=== PATIENT | male | born 1955 | race Caucasian/White ===

== ENCOUNTER 2020-05-15 07:15 | Outpatient (REF) | payer OTHER, SELFPAY ==
[2020-05-15 11:54] LABS: Cholesterol 130 mg/dL; HDL Cholesterol 33 mg/dL; LDL Cholesterol Calculated 58 mg/dl; Triglycerides 196 mg/dL
== END 2020-05-15 07:16 | disposition home or self-care (01) ==
LOC: HO.HMGCLDS 07:15
PROVIDERS: PCP Internal Medicine; Visit Provider Internal Medicine Cardiovascular Disease
DX: E78.00 Pure hypercholesterolemia, unspecified (principal)
CPT/HCPCS: 80061

== ENCOUNTER → 2020-07-08 13:22 | Outpatient (BNVA) | payer OTHER, SELFPAY | PROVIDERS: PCP Internal Medicine; Visit Provider Nurse Practitioner Family | DX: Z01.810 Encounter for preprocedural cardiovascular examination (principal); I25.10 Atherosclerotic heart disease of native coronary artery without angina pectoris; E78.5 Hyperlipidemia, unspecified; I10 Essential (primary) hypertension; Z98.890 Other specified postprocedural states; Z95.1 Presence of aortocoronary bypass graft | CPT/HCPCS: 93005 ==

== ENCOUNTER → 2021-01-12 13:22 | Outpatient (BNVA) | payer OTHER, SELFPAY | PROVIDERS: PCP Internal Medicine; Referring Provider Internal Medicine; Visit Provider Internal Medicine Cardiovascular Disease ==

== ENCOUNTER 2021-09-15 06:58 | Outpatient (REF) | payer OTHER, SELFPAY ==
[2021-09-15 11:27] LABS: MANUAL DIFF FLAG NO
[2021-09-15 11:35] LABS: Basophils Absolute Auto 0.1 X10*3/uL (0.0-0.2); Basophils Percent Auto 0.8 % (0-2); Eosinophils Absolute Auto 0.3 X10*3/uL (0.0-0.4); Eosinophils Percent Auto 4.1 % (0-4); Hematocrit 46.2 % (42.0-52.0); Hemoglobin 15.4 g/dl (14.0-18.0); Imm Gran Abs Auto 0.02 X10*3/uL (0.00-0.03); Imm Gran Pct Auto 0.3 % (0.0-0.4); Lymphocytes Absolute Auto 3.1 X10*3/uL (1.2-4.9); Lymphocytes Percent Auto 41.6 % (20-40); Mean Corpuscular HGB Conc 33.3 g/dl (31.0-36.0); Mean Corpuscular Volume 93.1 fL (80.0-98.0); Mean Platelet Volume 10.2 fL (9.4-12.4); Monocytes Absolute Auto 0.5 X10*3/uL (0.1-1.2); Monocytes Percent Auto 7.2 % (2-11); Neutrophils Absolute Auto 3.5 x10*3/uL (2.0-8.3); Platelet Count 232 X10*3/uL (160-400); Red Blood Count 4.96 X10*6/uL (4.60-5.80); Red Cell Distribution Width 13.5 % (11.0-16.0); White Blood Count 7.5 X10*3/uL (4.8-10.8)
[2021-09-15 12:01] LABS: Alanine Aminotransferase 31 U/L (0-40); Albumin Level 4.2 g/dL (3.5-5.0); Alkaline Phosphatase 42 U/L (39-117); Anion Gap 12 (12-20); Aspartate Amino Transferase 23 U/L (5-37); Bilirubin Total 0.5 mg/dL (0.0-1.0); Blood Urea Nitrogen 16 mg/dL (9-16); Calcium 9.6 mg/dL (8.4-10.2); Carbon Dioxide 27 mmol/L (22-29); Chloride 107 mmol/L (96-108); Cholesterol 154 mg/dL; Estimated Glomerular Filt Rate > 60; Glucose Fasting 114 mg/dL (60-99); HDL Cholesterol 32 mg/dL; LDL Cholesterol Calculated 83 mg/dl; Potassium 4.8 mmol/L (3.3-5.1); Sodium 141 mmol/L (135-145); Total Protein 6.8 g/dL (6.5-8.0); Triglycerides 195 mg/dL
== END 2021-09-15 06:59 | disposition home or self-care (01) ==
LOC: HO.HMGCLDS 06:58
PROVIDERS: Visit Provider Internal Medicine
DX: I10 Essential (primary) hypertension (principal); I25.10 Atherosclerotic heart disease of native coronary artery without angina pectoris; G25.81 Restless legs syndrome; E78.5 Hyperlipidemia, unspecified
CPT/HCPCS: 36415; 80053; 80061; 85025

== ENCOUNTER 2021-12-16 07:14 | Outpatient (REF) | payer OTHER, SELFPAY ==
[2021-12-16 11:36] LABS: Estimated Average Glucose 117 mg/dL; Hemoglobin A1C 148.9558 umol/L; Hemoglobin A1c % 5.7 %
[2021-12-16 12:14] LABS: Alanine Aminotransferase 17 U/L (0-40); Albumin Level 4.2 g/dL (3.5-5.0); Alkaline Phosphatase 45 U/L (39-117); Anion Gap 11 (12-20); Aspartate Amino Transferase 20 U/L (5-37); Bilirubin Total 0.6 mg/dL (0.0-1.0); Blood Urea Nitrogen 15 mg/dL (9-16); Calcium 9.2 mg/dL (8.4-10.2); Carbon Dioxide 28 mmol/L (22-29); Chloride 107 mmol/L (96-108); Cholesterol 131 mg/dL; Estimated Glomerular Filt Rate > 60; Glucose Fasting 101 mg/dL (60-99); HDL Cholesterol 35 mg/dL; LDL Cholesterol Calculated 65 mg/dl; Potassium 4.9 mmol/L (3.3-5.1); Sodium 141 mmol/L (135-145); Total Protein 6.5 g/dL (6.5-8.0); Triglycerides 157 mg/dL
== END 2021-12-16 07:15 | disposition home or self-care (01) ==
LOC: HO.HMGCLDS 07:14
PROVIDERS: PCP Internal Medicine; Visit Provider Internal Medicine
DX: Z00.01 Encounter for general adult medical examination with abnormal findings (principal); I25.10 Atherosclerotic heart disease of native coronary artery without angina pectoris; I10 Essential (primary) hypertension; R73.01 Impaired fasting glucose; E66.01 Morbid (severe) obesity due to excess calories; G25.81 Restless legs syndrome
CPT/HCPCS: 36415; 80053; 80061; 83036

== ENCOUNTER → 2022-01-18 10:23 | Outpatient (BNVA) | payer OTHER, SELFPAY | PROVIDERS: PCP Internal Medicine; Referring Provider Internal Medicine; Visit Provider Internal Medicine Cardiovascular Disease | DX: I25.10 Atherosclerotic heart disease of native coronary artery without angina pectoris (principal); I10 Essential (primary) hypertension | CPT/HCPCS: 93005 ==

== ENCOUNTER 2022-08-24 07:01 | Outpatient (REF) | payer OTHER, SELFPAY ==
[2022-08-24 11:44] LABS: MANUAL DIFF FLAG NO
[2022-08-24 11:55] LABS: Basophils Absolute Auto 0.1 X10*3/uL (0.0-0.2); Basophils Percent Auto 0.8 % (0-2); Eosinophils Absolute Auto 0.3 X10*3/uL (0.0-0.4); Hematocrit 48.4 % (42.0-52.0); Imm Gran Abs Auto 0.02 X10*3/uL (0.00-0.03); Imm Gran Pct Auto 0.3 % (0.0-0.4); Lymphocytes Absolute Auto 3.1 X10*3/uL (1.2-4.9); Mean Corpuscular HGB Conc 33.1 g/dl (31.0-36.0); Mean Corpuscular Hemoglobin 30.8 pg (27.0-33.0); Mean Corpuscular Volume 93.1 fL (80.0-98.0); Mean Platelet Volume 10.1 fL (9.4-12.4); Monocytes Absolute Auto 0.5 X10*3/uL (0.1-1.2); Monocytes Percent Auto 6.7 % (2-11); Neutrophils Absolute Auto 3.8 x10*3/uL (2.0-8.3); Neutrophils Percent Auto 48.2 % (45-73); Platelet Count 234 X10*3/uL (160-400); Red Cell Distribution Width 13.2 % (11.0-16.0); White Blood Count 7.8 X10*3/uL (4.8-10.8)
[2022-08-24 12:15] LABS: Alanine Aminotransferase 24 U/L (0-40); Albumin Level 4.3 g/dL (3.5-5.0); Alkaline Phosphatase 44 U/L (39-117); Anion Gap 12 (12-20); Aspartate Amino Transferase 21 U/L (5-37); Bilirubin Direct < 0.2 mg/dL (0.0-0.5); Bilirubin Total 0.5 mg/dL (0.0-1.0); Blood Urea Nitrogen 16 mg/dL (9-16); Calcium 9.4 mg/dL (8.4-10.2); Carbon Dioxide 29 mmol/L (22-29); Chloride 106 mmol/L (96-108); Estimated Glomerular Filt Rate > 60; Glucose Fasting 106 mg/dL (60-99); Potassium 4.9 mmol/L (3.3-5.1); Sodium 142 mmol/L (135-145); Total Protein 6.7 g/dL (6.5-8.0)
== END 2022-08-24 07:02 | disposition home or self-care (01) ==
LOC: HO.HMGCLDS 07:01
PROVIDERS: PCP Internal Medicine; Visit Provider Internal Medicine
DX: E66.09 Other obesity due to excess calories (principal); G25.81 Restless legs syndrome; I10 Essential (primary) hypertension; I25.10 Atherosclerotic heart disease of native coronary artery without angina pectoris; R73.01 Impaired fasting glucose; E78.5 Hyperlipidemia, unspecified
CPT/HCPCS: 36415; 80053; 80076; 82248; 85025

== ENCOUNTER 2022-12-17 09:33 | Outpatient (AMB) | payer OTHER, SELFPAY ==
--- NOTE | 2022-12-17 09:34 | A.OFFPC_ITS ---
Vital Signs 12/17/22 09:36 Weight 198 lb 8 oz BP 160/82 H Blood Pressure Location Rt brachial Position Sitting Pulse 68 Pulse Source Pulse Oximeter Pulse Oximetry (%) 96 Oxygen Delivery Method Room Air Intake Visit Reasons: PE Allergies No Known Allergies Allergy (Verified 12/17/22 09:38) Medication List - Last Reconciled 12/17/22 by Yoli Mathew MD aspirin (Ecotrin Low Strength) 81 mg PO DAILY atorvastatin 80 mg PO DAILY ezetimibe 10 mg PO DAILY metoprolol succinate ER 25 mg PO DAILY pramipexole 0.75 mg PO BEDTIME 90 days Tobacco use date assessed: 12/17/22 Fall risk assessment: No Falls in past year Last assessed Fall Risk: 12/17/22 Dental Screening Dental Screen Date: 12/17/22 Did you have a dental visit in the last 12 months?: Yes Did you have a dental problem in the last 6 months where you did not have access to dental care?: No Was dental information given to patient?: No HPI PE HPI Details Physical exam appointment Blood pressure is elevated, patient says that he get anxious when he comes to doctor's office at home it is running around 120 in below systolic All his medications are through cardiology office except pramipexole which I have sent for him. He offers no complaints today Do not want to do colonoscopy but agree to do Cologuard order placed Follow-up 1 year for physical exam Patient have appointment coming up with Cardiology next month [facility] Medical History CAD (coronary artery disease) HLD (hyperlipidemia) Hypertension, essential Restless leg syndrome Surgical History History of colonoscopy History of total left knee replacement (TKR) Hx of cardiac cath (~09/2019) S/P triple vessel bypass (~09/2019) Family History Father Myocardial infarction Social History Housing: House Alcohol intake: current Alcohol intake frequency: a few times a month Patient Tobacco Use Status: Former Tobacco user Tobacco use type: Cigarette Years Smoked: 2 e-Cigarette/Vaping Use: Never Used Second Hand Smoke Exposure: Yes service: No Current occupational status: retired Cognitive needs: No Hearing needs: No Vision needs: No Questionnaire Thrive Questionnaire Date Thrive assessed: 09/15/21 AUDIT C Alcohol Use Questionnaire (AUDIT-C) 1. How often do you have a drink containing alcohol?: 2-4 times a month 2. How many drinks containing alcohol do you have on a typical day when you are drinking?: 1 or 2 3. How often do you have six or more drinks on one occasion?: Never Total Score: 2 Score Reviewed/Action Taken: Yes KATI-7 AMB Questionnaire KATI-7 Date KATI - 7 assessed: 09/15/21 Source: Developed by Drs. Woody Feliciano, Fabi Barney, Pernell Berkowitz and colleagues, with an educational dany from [employer]. Review of Systems Const Denies chills, Denies fever(s) and Denies headache(s) Eyes Denies blurry vision ENT Denies headache(s), Denies nasal discharge, Denies nasal obstruction, Denies odynophagia and Denies sinus pain Card Denies chest pain at rest and Denies chest pain with activity Resp Denies cough and Denies hemoptysis GI Denies diarrhea, Denies odynophagia, Denies vomiting and Denies hematemesis Reports as per HPI Musc Denies abnormal gait Skin/Breast Reports as per HPI Neuro Denies Neuro-related abnormal movements, Denies Abnormal speech present, Denies abnormal gait, Denies headache(s) and Denies Sensory deficit (Neuro) Psych Denies mood swings and Denies paranoia Endo Reports as per HPI Beltran/Lymph Reports as per HPI Aller/Immun Reports as per HPI Physical exam (Primary Care) Vital Signs: Last Vital Signs Pulse 68 12/17/22 09:36 BP 160/82 H 12/17/22 09:36 Pulse Ox 96 12/17/22 09:36 Oxygen Delivery Method Room Air 12/17/22 09:36 Tobacco/Smoking Status: Tobacco use Status Tobacco use date assessed 12/17/22 12/17/22 09:39 Patient Tobacco Use Status Former Tobacco user 12/17/22 09:39 Tobacco use type Cigarette 12/17/22 09:39 e-Cigarette/Vaping Use Never Used 12/17/22 09:39 Thrive Assessment: Date of Thrive Assessment Date Thrive assessed 09/15/21 12/17/22 09:39 Const General: cooperative, comfortable and no acute distress Orientation/consciousness: patient oriented x3 HENMT Head: Yes normocephalic and Yes atraumatic Eyes General: appearance normal, both eyes and all related structures Pupils: Equal, round and reactive pupils present EOM: EOMs intact bilaterally Neck Neck: Yes supple and No lymphadenopathy Thyroid: Thyroid normal Lymphatic: no lymphadenopathy noted Resp Effort & Inspection: normal respiratory effort and able to speak in complete sentences Auscultation: clear to auscultation bilaterally Cardio Heart sounds: S1 normal heart sound present and S2 normal heart sound present GI Palpation (GI): Soft to palpation and nontender Auscultation: normal bowel sounds General: Yes no CVA tenderness Back/Spine/Pelvis Back: no CVA tenderness Skin General skin exam: elasticity normal and turgor normal Neuro General: patient oriented x3 and gait normal Cranial nerves: Yes Equal, round and reactive pupils present Speech: No Abnormal speech present Sensory Exam: No Sensory deficit (Neuro) Coordination: tandem gait normal and Romberg test negative Extrem General: Yes normal exam except as noted and No edema Assessment and Plan Assessment & Plan (1) Encounter for general adult medical examination with abnormal findings: Code(s): Z00.01 - Encounter for general adult medical examination with abnormal findings (2) Restless leg syndrome: Code(s): G2.81 - Restless legs syndrome Plan Physical exam appointment Blood pressure is elevated, patient says that he get anxious when he comes to doctor's office at home it is running around 120 in below systolic All his medications are through cardiology office except pramipexole which I have sent for him. He offers no complaints today Do not want to do colonoscopy but agree to do Cologuard order placed Follow-up 1 year for physical exam Patient have appointment coming up with Cardiology next month Orders: Referrals Cologuard Test Z12.11 - Encounter for screening for malignant neoplasm of colon, Z12.12 - Encounter for screening for malignant neoplasm of rectum Medications: Refilled pramipexole 0.75 mg PO BEDTIME 90 tabs 3RF 90 days .81 - Restless legs syndrome Coding Level of Care Code Est Pt Prev Care >65y(12699) Diagnoses Encounter for general adult medical examination with abnormal findings Z. Restless leg syndrome G2
[2022-12-17 09:36] VITALS: BP 160/82; PULSE 68; O2SAT 96
== END 2022-12-17 11:32 | disposition home or self-care (01) ==
PROVIDERS: Visit Provider Internal Medicine
DX: Z00.01 Encounter for general adult medical examination with abnormal findings (principal); G25.81 Restless legs syndrome
CPT/HCPCS: 99397

== ENCOUNTER → 2023-01-04 10:07 | Outpatient (REF) | payer OTHER, SELFPAY ==
--- NOTE | 2023-01-04 10:09 | CA_ITS ---
Transthoracic Echocardiogram Patient (Last, First, Middle): Woody Davis, Gender: Male Date of : 1955 Age: 67 Procedure Date: 01/04/2023 Procedure Type: Transthoracic Echocardiogram Location: OP Height: 170.18 cm Weight: 87.54 kg BSA: 1.99 m2 Heart Rate: bpm BP: 120 / 80 mmHg Ecological Risk Assessor: FROY Referring MD: Shorty Avila MD Symptoms: I25.10 - Atherosclerotic heart disease of [place] coronary artery without... Study Quality: Adequate ECG Rhythm: Sinus Conclusions: - The left ventricular systolic function is hyperdynamic. The calculated ejection fraction is 71% by biplane method. - LV peak systolic GLS -21.4%. - There is mild calcification of the aortic valve. - No obvious valvular pathology seen on this study. Findings Left Ventricle Normal left ventricular cavity size. There is mildly increased left ventricular wall thickness. The left ventricular systolic function is hyperdynamic. The calculated ejection fraction is 71% by biplane method. There is no evidence of regional wall motion abnormalities. Diastolic function is normal for age. LV peak systolic GLS -21.4%. Right Ventricle Normal right ventricular cavity size. There is mildly decreased right ventricular systolic function. Atria Both atria are normal in size. Aortic Valve There is mild calcification of the aortic valve. There is no aortic valve stenosis. There is no aortic valve regurgitation. Mitral Valve The mitral valve appears normal. There is trace mitral valve regurgitation. There is no mitral valve stenosis. Pulmonic Valve The pulmonic valve is likely normal. Tricuspid Valve There is mild tricuspid valve regurgitation. There is no evidence of pulmonary hypertension. Great Vessels The asc aorta is normal in size. Venous The inferior vena cava is normal in size and collapses greater than 50% with inspiration. Pericardium/Pleural There is no evidence of pericardial effusion. Prior Study Comparison Changes noted compared to prior study dated: 11/05/2019. LVEF higher than previously stated. Recommendations, Care & Conclusions No obvious valvular pathology seen on this study. Measurements 2D Linear Measurements IVSd: 1.15 0.6-0.9/0.6-1.0 cm LVIDd: 4.20 3.9-5.3/4.2-5.9 cm LVIDd Index: 2.11 2.4-3.2/2.2-3.1 cm/m2 LVIDs: 2.79 2.0-3.6 cm LVPWd: 1.12 0.7-1.1 cm LA Diam: 3.50 2.7-3.8/3.0-4.0 cm LAIDs Index: 1.76 1.5-2.3 cm/m2 LV Mass: 204.62 67-162/88-224 g LV Mass Index: 102.83 43-95/49-115 g/m2 LVOT Diam: 2.30 3.0+(-)1.3 cm 2D Systolic Function EF 4C: 77.90 >55% EF 2C: 61.50 >55% EF BiP: 70.70 >55% Mitral Valve MV Pk E: 1.01 MV PK A: 1.02 MV Decel Time: 246.00 E/A: 1.00 E'Lateral: 11.70 E'Medial: 6.42 E/E' Med: 15.70 E/E' Lat: 8.60 PHT: 72.00 MVA PHT: 3.06 Decel [place]: 4.11 Aortic Valve AoV Pk [place]: 1.75 AoV Mn [place]: 1.11 AoV VTI: 0.40 AoV Pk Grad: 12.00 Aov Mn Grad: 6.00 FARHEEN Cont.VTI: 3.18 LVOT LVOT Pk [place]: 1.33 LVOT Mn [place]: 0.90 LVOT VTI: 0.31 LVOT Pk Grad: 7.00 LVOT Mn Grad: 4.00 LVOT Diam: 2.30 LVOT Area: 4.15 Diastolic Function MV Pk E: 1.01 MV Pk A: 1.02 E/A: 1.00 E'Medial: 6.42 E/E' Med: 15.70 E' Laterial: 11.70 E/E' Lat: 8.60 Right Ventricle TAPSE (mm): 18.20 TVS' [place]: 8.70 Tricuspid Valve TR Pk [place]: 2.67 TR Pk Grad: 29.00 RA Press: 3.00 RVSP: 32.00 Great Vessels Aorta Sinus of Valsalva: 3.85 2.0-3.[address] [place]: 3.04 1.7-3.4 cm Ao Asc: 3.80 2.1-3.4 cm Updated in Other Vendor System with Status of Final Willian Palma MD electronically signed on 01/04/2023 11:15:57 AM with status of Final
== END ==
LOC: HO.CARD 10:07
PROVIDERS: PCP Internal Medicine; Visit Provider Internal Medicine Cardiovascular Disease
DX: I25.10 Atherosclerotic heart disease of native coronary artery without angina pectoris (principal)
CPT/HCPCS: 93306; 93356

== ENCOUNTER → 2023-01-04 10:09 | Outpatient (BNV) | payer OTHER, SELFPAY | PROVIDERS: PCP Internal Medicine; Visit Provider Internal Medicine | DX: I25.10 Atherosclerotic heart disease of native coronary artery without angina pectoris (principal); I36.1 Nonrheumatic tricuspid (valve) insufficiency | CPT/HCPCS: 93306 ==

== ENCOUNTER 2023-07-12 13:29 | Outpatient (AMB) | payer OTHER, SELFPAY ==
[2023-07-12 13:31] VITALS: BP 171/88; PULSE 62; BMI 31.4
--- NOTE | 2023-07-12 13:31 | MHC.OFFVIS ---
Intake Vital Signs 07/12/23 13:31 Height 5 ft 7 in Weight 200 lb 9.93 oz BMI 31.4 BP 171/88 H Blood Pressure Location Lt brachial Position Sitting Pulse 62 Intake Visit Reasons: Other fecal abnormalities Intake Note: Patient presents to in office visit today as a new patient for positive cologuard. CC: Patient denies having any GI symptoms today. Patient states his last colonoscopy was about 9-10 years ago . Tourist Adviser Required: No Accompanied by: Self / Same As Patient Allergies No Known Allergies Allergy (Verified 07/12/23 13:36) HPI Other fecal abnormalities HPI Details 68 year old? male with past medical history of CAD, triple bypass in 2019, hypertension, hyperlipidemia is here today for pre colonoscopy screening.? History of three-vessel bypass in September of 2019. Patient has seen Dr. Avila since. Appointment in January. Will ask for risk stratification. Normal colonoscopy in 2006. In April patient had positive Cologuard. Patient denies melena, hematochezia, unintentional weight loss or ribbon like stools.? Patient denies any gastrointestinal symptoms in the past or at present.? Denies any personal or family history of gastrointestinal disease, colon polyps, or cancer.? Denies history of difficulty with sedation or anesthesia in the past.? Negative for history of sleep apnea.? Denies any history of cardiac, renal, pulmonary, or hepatic disease.?? No history of infectious? diseases like hepatitis A, B, C, HIV or tuberculosis.? Patient is on low-dose aspirin [facility] Medical History CAD (coronary artery disease) Restless leg syndrome Hypertension, essential HLD (hyperlipidemia) Surgical History Hx of cardiac cath (~09/2019) S/P triple vessel bypass (~09/2019) History of colonoscopy History of total left knee replacement (TKR) Family History Father Myocardial infarction Social History Housing: House Alcohol intake: current Alcohol intake frequency: a few times a month Patient Tobacco Use Status: Former Tobacco user Tobacco use type: Cigarette Years Smoked: 2 e-Cigarette/Vaping Use: Never Used Second Hand Smoke Exposure: Yes service: No Current occupational status: retired Cognitive needs: No Hearing needs: No Vision needs: No Review of Systems Const Denies weight gain and Denies weight loss ENT Reports no additional complaints, Denies dysphagia and Denies odynophagia Card Reports no additional complaints Resp Reports no additional complaints GI Denies abdominal pain, Denies belching, Denies melena, Denies bloating, Denies change in bowel habits, Denies dysphagia, Denies excessive flatus, Denies dyspepsia, Denies heartburn, Denies diarrhea, Denies loose stools, Denies nausea, Denies odynophagia and Denies vomiting Reports no additional complaints Musc Reports no additional complaints Neuro Reports no additional complaints Psych Reports no additional complaints Endo Reports no additional complaints Physical Exam Vital Signs: Last Vital Signs Pulse 62 07/12/23 13:31 BP 171/88 H 07/12/23 13:31 BMI result Body Mass Index 31.4 Const General: healthy appearing, no acute distress and well developed Nutritional Appearance: well nourished Orientation/consciousness: patient oriented x3 Resp Effort & Inspection: normal respiratory effort, able to speak in complete sentences, no tracheal deviation and symmetric chest movement Auscultation: clear to auscultation bilaterally Cardio Rate: regular rate GI Inspection: Yes normal to inspection and No distended Palpation (GI): Soft to palpation, not firm, nontender and No hepatosplenomegaly present Auscultation: normal bowel sounds General: Yes no CVA tenderness Back/Spine/Pelvis Back: no CVA tenderness Skin General skin exam: elasticity normal, turgor normal and dry skin Neuro General: patient oriented x3 Psych Appearance: grossly normal Mental Status: mental status grossly normal Assessment & Plan Assessment & Plan (1) Positive colorectal cancer screening using Cologuard test: Code(s): R19.5 - Other fecal abnormalities Plan Patient denies any GI, cardiac or respiratory symptoms.? Denies any issues with anesthesia in the past.? As mentioned above patient had positive Cologuard in April. History of normal colonoscopy in 2006. Patient had triple bypass in 2019, sees cardiology annually. No cardiac or respiratory symptoms. Patient has appointment with dry mill operator in January. Will ask for risk stratification. Patient is on low-dose aspirin Denies any history of sleep apnea.? No history infectious diseases in the past or present.? ? No family or personal history of colon cancer or polyps.? Patient denies melena, hematochezia, unintentional weight loss or ribbon like stools.? Discussed at length the pre-procedure,? prep, diet & medications as well as what to expect prior, during and after the procedure.?? Stressed the importance of good bowel prep. ?Recommended the use of Vaseline or Calmoseptine OTC & baby wipes with bowel movements to promote comfort.? ?Patient verbalizes understanding and agrees to plan of care.? He was given the opportunity to ask questions and all questions answered.? We will see him after the procedure.? Coding Level of Care Code New Pt Level 3 (68577) Diagnoses Positive colorectal cancer screening using Cologuard test R19.5 Time Spent (min) 40 Comment 30 minutes spent with patient and additional 10 minutes spent reviewing his records
== END 2023-07-12 14:52 | disposition home or self-care (01) ==
PROVIDERS: PCP Internal Medicine; Visit Provider Nurse Practitioner Family
DX: R19.5 Other fecal abnormalities (principal)
CPT/HCPCS: 99203

== ENCOUNTER → 2023-07-12 13:29 | Outpatient (BNVA) | payer OTHER, SELFPAY | PROVIDERS: PCP Internal Medicine; Visit Provider Nurse Practitioner Family ==

== ENCOUNTER 2023-11-21 14:39 | Outpatient (AMB) | payer OTHER, SELFPAY ==
[2023-11-21 14:51] VITALS: BP 128/84; PULSE 64
--- NOTE | 2023-11-21 14:51 | MHC.OFFVIS ---
Vital Signs 11/21/23 14:51 Height 5 ft 7 in Weight 191 lb 12.835 oz BMI 30.0 BP 128/84 Blood Pressure Location Lt brachial Position Sitting Pulse 64 Intake Visit Reasons: overdue 1 yr fu/ clearance needed for colonoscopy Intake Note: Overdue follow-up and pre-op clearance colonoscopy with ekg feeling good Allergies No Known Allergies Allergy (Verified 07/12/23 13:36) Medication List - Last Reconciled 11/21/23 by Shorty Avila MD aspirin (Ecotrin Low Strength) 81 mg PO DAILY atorvastatin 80 mg PO DAILY ezetimibe 10 mg PO DAILY metoprolol succinate ER 25 mg PO DAILY pramipexole 0.75 mg PO BEDTIME 90 days HPI Comments Details: Woody Comes for follow-up after a long gap. Occasionally feels short of breath. Since May he said he was having issues with increased shortness of breath with cough productive of phlegm after exposure to his friend who had RSV. He has never been diagnose officially with COPD. He denies any chest pain syndrome. Denies any orthopnea, PND, leg edema. Denies any claudication symptoms. Denies any palpitations, lightheadedness, syncope. Takes all his medications. No recent lipid panel. [facility] Medical History CAD (coronary artery disease) Restless leg syndrome Hypertension, essential HLD (hyperlipidemia) Surgical History Hx of cardiac cath (~09/2019) S/P triple vessel bypass (~09/2019) History of colonoscopy History of total left knee replacement (TKR) Family History Father Myocardial infarction Social History Housing: House Alcohol intake: current Alcohol intake frequency: a few times a month Patient Tobacco Use Status: Former Tobacco user Tobacco use type: Cigarette Years Smoked: 2 e-Cigarette/Vaping Use: Never Used Second Hand Smoke Exposure: Yes service: No Current occupational status: retired Cognitive needs: No Hearing needs: No Vision needs: No Review of Systems Const Denies chills, Denies fatigue, Denies fever(s), Denies frequent falls, Denies weakness, Denies weight gain and Denies weight loss ENT Denies dizziness Card Denies chest pain, Denies leg edema, Denies lightheadedness, Denies palpitations, Denies dyspnea, Denies dyspnea on exertion, Denies orthopnea and Denies other (loss of consciousness) Resp Denies cough, Denies dyspnea and Denies dyspnea on exertion GI Denies hematochezia and Denies change in stool character Musc Denies abnormal gait, Denies muscle weakness, Denies numbness, Denies radiating pain into limb and Denies tingling Neuro Denies abnormal gait, Denies dizziness, Denies frequent falls, Denies numbness, Denies tingling and Denies weakness Endo Denies fatigue and Denies palpitations Physical Exam Vital Signs: Last Vital Signs Pulse 64 11/21/23 14:51 BP 128/84 11/21/23 14:51 BMI result Body Mass Index 30.0 Const General: cooperative, healthy appearing, comfortable and no acute distress Orientation/consciousness: patient oriented x3 Neck Neck: Yes normal visual inspection and Yes no JVD Carotids: normal carotid upstroke Resp Effort & Inspection: normal respiratory effort Auscultation: clear to auscultation bilaterally, no crackles, no rales, no rhonchi, no wheezes and diminished lung sounds Cardio Jugular venous distension: no JVD Rate: regular rate Rhythm: regular rhythm Heart sounds: S1 normal heart sound present, S2 normal heart sound present, no gallops, no murmurs and no rubs Peripheral pulses: Peripheral pulses 2+ throughout GI Inspection: Yes normal to inspection Neuro General: patient oriented x3 Extrem General: Yes normal to inspection, No no pedal edema and No calf tenderness Office Procedures EKG Details: EKG shows normal sinus rhythm with septal QS pattern otherwise normal EKG [id number], Complete Assessment & Plan Assessment & Plan (1) CAD (coronary artery disease): Code(s): I25.10 - Atherosclerotic heart disease of [place] coronary artery without angina pectoris Category: Medical Plan: Coronary artery disease with coronary artery bypass grafting for severe coronary disease with no concerning symptoms of angina. Importance of good medical therapy was discussed. Continue low-dose aspirin therapy for life. Continue current high-intensity statin therapy along with ezetimibe to target goal LDL less than 70 mg/dL. Advised lipid panel near future. Continue aggressive blood pressure control which appears to be well optimized encouraged to continue to participate in physical activity as tolerated. Will follow-up with myocardial perfusion imaging next year along with an echocardiogram next year as well. Suggest abdominal ultrasound given his prior history of smoking for AAA screening. Complaining of increasing exertional shortness of breath with phlegm most likely suggestive of COPD baseline physical exam. Consider PFT and referral to Pulmonary. (2) Hypertension, essential: Code(s): I10 - Essential (primary) hypertension Category: Medical Plan: Hypertension which is currently well optimized advised to monitor blood pressure at home maintain a log. Goal blood pressure less than 130/84. Low-salt diet was discussed encouraged to participate in physical activity as tolerated and weight loss program. Will follow up in the clinic in 1 year's time, sooner p.r.n.. Thank you for allowing me to partake in his care Orders: Orders PFT pulmonary function test Today R06.02 - Shortness of breath CA stress test 1 Year I25.10 - Atherosclerotic heart disease of [place] coronary artery without angina pectoris NM cardiolite stress test 1 Year I25.10 - Atherosclerotic heart disease of [place] coronary artery without angina pectoris CA echo transthoracic complete Today I25.10 - Atherosclerotic heart disease of [place] coronary artery without angina pectoris Lipid Panel Today I25.10 - Atherosclerotic heart disease of [place] coronary artery without angina pectoris US abdominal aortic aneurysm Today I25.10 - Atherosclerotic heart disease of [place] coronary artery without angina pectoris Coding Level of Care Code Est Pt Level 4 (27892) Diagnoses CAD (coronary artery disease) I25.10 Hypertension, essential I10 CPT Codes EKG - CPT: 03954-[id number], Complete ([id number])
== END 2023-11-21 15:17 | disposition home or self-care (01) ==
PROVIDERS: PCP Internal Medicine; Visit Provider Internal Medicine Cardiovascular Disease
DX: I25.10 Atherosclerotic heart disease of native coronary artery without angina pectoris (principal); I10 Essential (primary) hypertension
CPT/HCPCS: 93010; 99214

== ENCOUNTER → 2023-11-21 14:39 | Outpatient (BNVA) | payer OTHER, SELFPAY | PROVIDERS: PCP Internal Medicine; Visit Provider Internal Medicine Cardiovascular Disease | DX: I25.10 Atherosclerotic heart disease of native coronary artery without angina pectoris (principal); I10 Essential (primary) hypertension; Z79.82 Long term (current) use of aspirin; Z79.899 Other long term (current) drug therapy | CPT/HCPCS: 93005 ==

== ENCOUNTER 2023-12-06 09:53 | Outpatient (REF) | payer OTHER, SELFPAY ==
--- NOTE | ~2023-12-06 | US_ITS ---
EXAMINATION: US RETROPERITONEAL LIMITED (AORTA) CLINICAL INFORMATION: Atherosclerotic heart disease of [place] coronary artery without angina pectoris. COMPARISON: None available. TECHNIQUE: Moran-scale, color Doppler and spectral Doppler evaluation of the abdominal aorta. FINDINGS: Atherosclerosis in the abdominal aorta. The measurements of the aorta in maximum AP and transverse dimensions respectively are as follows: Proximal: 3.0 x 2.9 cm. Mid: 2.7 x 2.6 cm. Distal: 3.0 x 3.4 cm. PSV: 43.3 cm/s. The measurements of the common iliac arteries in maximum AP and TRV dimensions are as follows: Right Common Iliac Artery: 1.5 x 1.5 cm. Left Common Iliac Artery: 1.6 x 1.5 cm. US/US abdominal aortic aneurysm IMPRESSION: Infrarenal abdominal aortic aneurysm measuring up to 3.4 cm. Best Practice Recommendation: Based on published guidelines in J Am Zee Radiol 2013; 10(10):789-794 and J Vasc Surg. 2018; 67:2-77, the recommendation for an abdominal aortic aneurysm with diameter 3.0-3.4 cm is follow-up every 3 years.
== END 2023-12-06 09:54 | disposition home or self-care (01) ==
LOC: HO.US 09:53
PROVIDERS: PCP Internal Medicine; Visit Provider Internal Medicine Cardiovascular Disease
DX: I25.10 Atherosclerotic heart disease of native coronary artery without angina pectoris (principal)
CPT/HCPCS: 76706

== ENCOUNTER 2023-12-07 06:03 | Outpatient (REF) | payer OTHER, SELFPAY ==
[2023-12-07 11:00] LABS: Cholesterol 135 mg/dL (<200); HDL Cholesterol 36 mg/dL (>40); LDL Cholesterol Calculated 64 mg/dL (<100); Triglycerides 176 mg/dL (<150)
== END 2023-12-07 06:04 | disposition home or self-care (01) ==
LOC: HO.HMGCLDS 06:03
PROVIDERS: PCP Internal Medicine; Visit Provider Internal Medicine Cardiovascular Disease
DX: I25.10 Atherosclerotic heart disease of native coronary artery without angina pectoris (principal)
CPT/HCPCS: 36415; 80061

== ENCOUNTER 2023-12-21 09:05 | Outpatient (AMB) | payer OTHER, SELFPAY ==
[2023-12-21 09:06] VITALS: BP 140/80; PULSE 74; O2SAT 97
--- NOTE | 2023-12-21 09:06 | A.OFFPC_ITS ---
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 Accompanied by: Self / Same As Patient Allergies No Known Allergies Allergy (Verified 12/21/23 09:06) Medication List - Last Reconciled 12/21/23 by Yoli Mathew MD aspirin (Ecotrin Low Strength) 81 mg PO DAILY atorvastatin 80 mg PO DAILY ezetimibe 10 mg PO DAILY metoprolol succinate ER 25 mg PO DAILY pramipexole 0.75 mg PO BEDTIME 90 days Tobacco use date assessed: 12/21/23 Fall risk assessment: No Falls in past year Last assessed Fall Risk: 12/21/23 Dental Screening Dental Screen Date: 12/21/23 Did you have a dental visit in the last 12 months?: Yes Did you have a dental problem in the last 6 months where you did not have access to dental care?: No Was dental information given to patient?: Patient has dentist HPI Annual PE HPI Details 68 year old? male with past medical hist ory of CAD, triple bypass in 2019, hypertension, hyperlipidemia Positive Cologuard test in April of last year, has seen Gastroenterology July of this year and is due to have colonoscopy in April Came in for physical exam Patient is established with Cardiology [facility] Pulmonary function test was ordered by Dr. Avila as patient continued to complain of mild shortness a breath He just had does done yesterday report is not available Offer no new complaints Only medication from PCP office is pramipexole for restless legs syndrome. History of impaired fasting sugar, I see that he had cholesterol test done recently this month I have placed order for rest of the labs patient may do them as per his convenience [facility] Medical History CAD (coronary artery disease) Restless leg syndrome Hypertension, essential HLD (hyperlipidemia) Surgical History Hx of cardiac cath (~09/2019) S/P triple vessel bypass (~09/2019) History of colonoscopy History of total left knee replacement (TKR) Family History Father Myocardial infarction Social History Housing: House Alcohol intake: current Alcohol intake frequency: a few times a month Patient Tobacco Use Status: Former Tobacco user Tobacco use type: Cigarette Years Smoked: 2 e-Cigarette/Vaping Use: Never Used Second Hand Smoke Exposure: Yes service: No Current occupational status: retired Cognitive needs: No Hearing needs: No Vision needs: No Questionnaire PHQ-9 Over the last 2 weeks, how often have you been bothered by any of the following problems? 1. Little interest or pleasure in doing things: not at all 2. Feeling down, depressed, or hopeless: not at all 3. Trouble falling or staying asleep, or sleeping too much: not at all 4. Feeling tired or having little energy: not at all 5. Poor appetite or overeating: not at all 6. Feeling bad about yourself - or that you are a failure or have let yourself or your family down: not at all 7. Trouble concentrating on things, such as reading the newspaper or watching television: not at all 8. Moving or speaking so slowly that other people could have noticed. Or the opposite - being so fidgety or restless that you have been moving around a lot more than usual: not at all 9. Thoughts that you would be better off or of hurting yourself in some way: not at all Total score: 0 Depression Screening Interpretation: Negative Depression Screening Done: Yes 34693 - PHQ-9 Billing: Yes Source: Developed by Drs. Woody Feliciano, Fabi Barney, Pernell Berkowitz and colleagues, with an educational dany from [employer]. Thrive Questionnaire Date Thrive assessed: 12/21/23 I am a: Patient What is your living situation today?: I have a steady place to live Within the past 12 months, did the food you bought not last and you didn't have the money to get more?: Never true Within the past 12 months, did you worry whether your food would run out before you got money to buy more?: Never true Do you have trouble paying for medicines?: No Do you have trouble getting transportation to medical appointments?: No Do you have trouble paying your heating and electricity bill?: No Do you have trouble taking care of your child, family member or friend?: No Do you have trouble with day-to-day activities such as bathing, preparing meals, shopping, managing finances, etc.?: No Are you currently unemployed and looking for a job?: No Are you interested in more education?: No Please select the resources that you would like help with: Housing/Retirement Currently or been in a relationship where the following occur: No concerns reported THRIVE Score: 0 AUDIT C Alcohol Use Questionnaire (AUDIT-C) 1. How often do you have a drink containing alcohol?: 2-4 times a month 2. How many drinks containing alcohol do you have on a typical day when you are drinking?: 1 or 2 3. How often do you have six or more drinks on one occasion?: Never Total Score: 2 Score Reviewed/Action Taken: Yes KATI-7 AMB Questionnaire KATI-7 Date KATI - 7 assessed: 12/21/23 Feeling nervous, anxious, or on edge: 0 = Not at all Not being able to stop or control worryin = Not at all Worrying too much about different things: 0 = Not at all Trouble relaxin = Not at all Being so restless that it is hard to sit still: 0 = Not at all Becoming easily annoyed or irritable: 0 = Not at all Feeling afraid as if something awful might happen: 0 = Not at all Total KATI-7 score (0-4 normal; 5-9 mild; 10-14 moderate; 15-21 severe): 0 Source: Developed by Drs. Woody Feliciano, Fabi Barney, Pernell Berkowitz and colleagues, with an educational dany from [employer]. KATI-7 Assessment Billing KATI-7 Assessment Tool: KATI-7 Assessment 29215 Review of Systems Const Denies chills, Denies fever(s) and Denies headache(s) Eyes Denies blurry vision ENT Denies headache(s), Denies nasal discharge, Denies nasal obstruction, Denies odynophagia and Denies sinus pain Card Denies chest pain at rest and Denies chest pain with activity Resp Denies cough and Denies hemoptysis GI Denies diarrhea, Denies odynophagia, Denies vomiting and Denies hematemesis Reports as per HPI Musc Denies abnormal gait Skin/Breast Reports as per HPI Neuro Denies Neuro-related abnormal movements, Denies Abnormal speech present, Denies abnormal gait, Denies headache(s) and Denies Sensory deficit (Neuro) Psych Denies mood swings and Denies paranoia Endo Reports as per HPI Bel[place]an/Lymph Reports as per HPI Aller/Immun Reports as per HPI Physical exam (Primary Care) Vital Signs: Last Vital Signs Pulse 74 12/21/23 09:06 BP 140/80 H 12/21/23 09:06 Pulse Ox 97 12/21/23 09:06 Oxygen Delivery Method Room Air 12/21/23 09:06 Tobacco/Smoking Status: Tobacco use Status Tobacco use date assessed 12/21/23 12/21/23 09:07 Patient Tobacco Use Status Former Tobacco user 12/21/23 09:07 Tobacco use type Cigarette 12/21/23 09:07 e-Cigarette/Vaping Use Never Used 12/21/23 09:07 PHQ-9: PHQ-9 Score PHQ-9: Total score 0 12/21/23 09:12 Depression Screening Interpretation: Negative Thrive Assessment: Date of Thrive Assessment Date Thrive assessed 12/21/23 12/21/23 09:07 Currently or been in a relationship where the following occur: No concerns reported Const General: cooperative, comfortable and no acute distress Orientation/consciousness: patient oriented x3 HENMT Head: Yes normocephalic and Yes atraumatic Eyes General: appearance normal, both eyes and all related structures Pupils: Equal, round and reactive pupils present EOM: EOMs intact bilaterally Neck Neck: Yes supple and No lymphadenopathy Thyroid: Thyroid normal Lymphatic: no lymphadenopathy noted Resp Effort & Inspection: normal respiratory effort and able to speak in complete sentences Auscultation: clear to auscultation bilaterally Cardio Heart sounds: S1 normal heart sound present and S2 normal heart sound present GI Palpation (GI): Soft to palpation and nontender Auscultation: normal bowel sounds General: Yes no CVA tenderness Back/Spine/Pelvis Back: no CVA tenderness Skin General skin exam: elasticity normal and turgor normal Neuro General: patient oriented x3 and gait normal Cranial nerves: Yes Equal, round and reactive pupils present Speech: No Abnormal speech present Sensory Exam: No Sensory deficit (Neuro) Coordination: tandem gait normal and Romberg test negative Extrem General: Yes normal exam except as noted and No edema Assessment and Plan Assessment & Plan (1) Encounter for general adult medical examination with abnormal findings: Code(s): Z00.01 - Encounter for general adult medical examination with abnormal findings (2) Hypertension, essential: Code(s): I10 - Essential (primary) hypertension (3) Restless leg syndrome: Code(s): G25.81 - Restless legs syndrome (4) CAD (coronary artery disease): Code(s): I25.10 - Atherosclerotic heart disease of [place] coronary artery without angina pectoris Qualifiers: Associated angina: without angina Coronary Disease-Associated Artery/Lesion type: [place] artery [place] vs. transplanted heart: [place] heart Qualified Code(s): I25.10 - Atherosclerotic heart disease of [place] coronary artery without angina pectoris (5) Impaired fasting blood sugar: Code(s): R73.01 - Impaired fasting glucose (6) Obesity due to excess calories: Code(s): E66.09 - Other obesity due to excess calories Qualifiers: Body mass index: BMI 30.0-30.9 Obesity classification: adult class 1 (BMI 30 - 34.9) Serious obesity comorbidity presence: with serious comorbidity Qualified Code(s): E66.09 - Other obesity due to excess calories; Z68.30 - Body mass index [BMI] 30.0-30.9, adult Plan 68 year old? male with past medical history of CAD, triple bypass in 2019, hypertension, hyperlipidemia Positive Cologuard test in April of last year, has seen Gastroenterology July of this year and is due to have colonoscopy in April Came in for physical exam Patient is established with Cardiology [facility] Pulmonary function test was ordered by Dr. Avila as patient continued to complain of mild shortness a breath He just had does done yesterday report is not available Offer no new complaints Only medication from PCP office is pramipexole for restless legs syndrome. History of impaired fasting sugar, I see that he had cholesterol test done recently this month I have placed order for rest of the labs patient may do them as per his convenience Orders: Orders TSH reflex Free T4 Today E66.09 - Other obesity due to excess calories, G25.81 - Restless legs syndrome, I10 - Essential (primary) hypertension, I25.10 - Atherosclerotic heart disease of [place] coronary artery without angina pectoris, R73.01 - Impaired fasting glucose, Z00.01 - Encounter for general adult medical examination with abnormal findings Hemoglobin A1c Today E66.09 - Other obesity due to excess calories, G25.81 - Restless legs syndrome, I10 - Essential (primary) hypertension, I25.10 - Atherosclerotic heart disease of [place] coronary artery without angina pectoris, R73.01 - Impaired fasting glucose, Z00.01 - Encounter for general adult medical examination with abnormal findings Comprehensive [place]. Panel Fast Today E66.09 - Other obesity due to excess calories, G25.81 - Restless legs syndrome, I10 - Essential (primary) hyper tension, I25.10 - Atherosclerotic heart disease of [place] coronary artery without angina pectoris, R73.01 - Impaired fasting glucose, Z00.01 - Encounter for general adult medical examination with abnormal findings Complete Blood Count Auto Diff Today E66.09 - Other obesity due to excess calories, G25.81 - Restless legs syndrome, I10 - Essential (primary) hypertension, I25.10 - Atherosclerotic heart disease of [place] coronary artery without angina pectoris, R73.01 - Impaired fasting glucose, Z00.01 - Encounter for general adult medical examination with abnormal findings Lipid Panel Today E66.09 - Other obesity due to excess calories, G25.81 - Restless legs syndrome, I10 - Essential (primary) hypertension, I25.10 - Atherosclerotic heart disease of [place] coronary artery without angina pectoris, R73.01 - Impaired fasting glucose, Z00.01 - Encounter for general adult medical examination with abnormal findings Medications: Refilled pramipexole 0.75 mg PO BEDTIME 90 tabs 3RF 90 days G25.81 - Restless legs syndrome Coding Level of Care Code Est Pt Level 3 (61627) Est Pt Prev Care >65y(43505) Diagnoses Encounter for general adult medical examination with abnormal findings Z00.01 Hypertension, essential I10 Restless leg syndrome G25.81 Coronary artery disease involving [place] coronary artery of [place] heart without angina pectoris I25.10 Associated angina: without angina Coronary Disease-Associated Artery/Lesion type: [place] artery [place] vs. transplanted heart: [place] heart Impaired fasting blood sugar R73.01 Class 1 obesity due to excess calories with serious comorbidity and body mass index (BMI) of 30.0 to 30.9 in adult E66.09; Z68.30 Body mass index: BMI 30.0-30.9 Obesity classification: adult class 1 (BMI 30 - 34.9) Serious obesity comorbidity presence: with serious comorbidity Additional Codes KATI-7 Assessment Billing - KATI-7 Assessment Tool: KATI-7 Assessment 21697 ([id number])
== END 2023-12-21 09:25 | disposition home or self-care (01) ==
PROVIDERS: PCP Internal Medicine; Visit Provider Internal Medicine
DX: Z00.00 Encounter for general adult medical examination without abnormal findings (principal); I10 Essential (primary) hypertension; E66.09 Other obesity due to excess calories; Z68.30 Body mass index [BMI] 30.0-30.9, adult; G25.81 Restless legs syndrome; I25.10 Atherosclerotic heart disease of native coronary artery without angina pectoris; R73.01 Impaired fasting glucose
CPT/HCPCS: 99397

== ENCOUNTER 2024-02-29 07:04 | Outpatient (REF) | payer OTHER, SELFPAY ==
[2024-02-29 10:10] LABS: MANUAL DIFF FLAG NO
[2024-02-29 10:14] LABS: Basophils Percent Auto 0.5 % (0-2); Eosinophils Absolute Auto 0.3 X10*3/uL (0.0-0.4); Eosinophils Percent Auto 3.3 % (0-4); Hematocrit 48.3 % (42.0-52.0); Hemoglobin 16.3 g/dl (14.0-18.0); Imm Gran Abs Auto 0.02 X10*3/uL (0.00-0.03); Imm Gran Pct Auto 0.2 % (0.0-0.4); Lymphocytes Absolute Auto 3.2 X10*3/uL (1.2-4.9); Lymphocytes Percent Auto 38.4 % (20-40); Mean Corpuscular HGB Conc 33.7 g/dl (31.0-36.0); Mean Corpuscular Hemoglobin 31.5 pg (27.0-33.0); Mean Corpuscular Volume 93.2 fL (80.0-98.0); Mean Platelet Volume 10.1 fL (9.4-12.4); Monocytes Absolute Auto 0.6 X10*3/uL (0.1-1.2); Monocytes Percent Auto 6.9 % (2-11); Neutrophils Absolute Auto 4.3 x10*3/uL (2.0-8.3); Neutrophils Percent Auto 50.7 % (45-73); Platelet Count 215 X10*3/uL (160-400); Red Blood Count 5.18 X10*6/uL (4.60-5.80); Red Cell Distribution Width 13.2 % (11.0-16.0); White Blood Count 8.4 X10*3/uL (4.8-10.8)
[2024-02-29 10:30] LABS: Estimated Average Glucose 126 mg/dL
[2024-02-29 10:37] LABS: Alanine Aminotransferase 24 U/L (0-40); Albumin Level 4.3 g/dL (3.5-5.0); Alkaline Phosphatase 46 U/L (39-117); Anion Gap 9 (12-20); Aspartate Amino Transferase 23 U/L (5-37); Bilirubin Total 0.7 mg/dL (0.0-1.0); Blood Urea Nitrogen 18 mg/dL (9-16); Calcium 9.5 mg/dL (8.4-10.2); Carbon Dioxide 32 mmol/L (22-29); Chloride 106 mmol/L (96-108); Cholesterol 130 mg/dL (<200); Estimated Glomerular Filt Rate > 60; Glucose Fasting 106 mg/dL (60-99); HDL Cholesterol 36 mg/dL (>40); LDL Cholesterol Calculated 65 mg/dL (<100); Potassium 4.6 mmol/L (3.3-5.1); Sodium 142 mmol/L (135-145); Triglycerides 147 mg/dL (<150)
[2024-02-29 10:56] LABS: TSH reflex Free T4 1.12 uIU/mL (0.32-4.0)
== END 2024-02-29 07:05 | disposition home or self-care (01) ==
LOC: HO.HMGCLDS 07:04
PROVIDERS: PCP Internal Medicine; Visit Provider Internal Medicine
DX: Z00.01 Encounter for general adult medical examination with abnormal findings (principal); E66.09 Other obesity due to excess calories; R73.01 Impaired fasting glucose; I25.10 Atherosclerotic heart disease of native coronary artery without angina pectoris; G25.81 Restless legs syndrome; I10 Essential (primary) hypertension
CPT/HCPCS: 36415; 80053; 80061; 83036; 84443; 85025

== ENCOUNTER 2024-11-21 11:28 | Outpatient (AMB) | payer OTHER, SELFPAY ==
--- NOTE | 2024-11-21 11:34 | AM.OFFWIN_ITS ---
Intake Vital Signs 11/21/24 11:35 11/21/24 11:39 Height 5 ft 7 in Weight 181 lb 2 oz BMI 28.4 BP 172/108 H 148/98 H Blood Pressure Location Rt brachial Rt brachial Position Sitting Sitting Pulse 100 98 Pulse Source Pulse Oximeter Pulse Oximeter Temp 98.1 F Temp Source Oral Pulse Oximetry (%) 93 94 Oxygen Delivery Method Room Air Room Air Intake Visit Reasons: EP ? Bronchitis, SOB Intake Note: Pt presents to the office today for c/o SOB,wheezing, sinus pressure x5 days. Pt ambulated (I) gait steady to triage room c/o shortness of breath, congestion and productive cough (yellow) x 5 days. Pt stated that he had RSV last year which progressed to bronchitis. Pt speaks in full sentences. A/o x 3. Lungs - tight all lobes except for LLL - cta. Pt roomed. TRACY (Zara) aware. Patient Tobacco Use Status: Former Tobacco user Allergies No Known Allergies Allergy (Verified 11/21/24 11:37) HPI HPI Comments History of Present Illness Details History - The patient is a 69-year-old male pres enting with breathing difficulties and congestion. - Symptoms began six days ago, including congestion, chills, and wheezing. - No history of asthma or COPD, and no p revious respiratory issues reported. Does not smoke or vape but does smoke weed once in a while. - Xjon-sxp-qgfgsev inhaler use has resul randy in elevated blood pressure. - The patient maintains an active lifest yle with no prior respiratory issues. - Taking over the counter decongestant. Physical Exam General: Cooperative, healthy appearing, comfortable and no acute distress Orientation/consciousness: Patient oriented x3 Limitations: No limitations Head: Normal to inspection Ears: Hearing grossly normal bilaterally, external ears normal and TM's normal bilaterally Nose: Normal external nose present, Normal nares present and No nasal discharge present Face and sinus: Normal facial exam and Yes sinuses nontender Mouth: Normal oral and palatal mucosa present and moist mucous membranes Throat: Yes tonsils normal, Yes uvula midline. Posterior oropharynx erythema, no exudates Eyes: Appearance normal, both eyes and all related structures Neck: Normal visual inspection, full ROM Respiratory: Clear to auscultation bilaterally. Normal respiratory effort, able to speak in complete sentences, Actively coughing, no respiratory distress, not tachypneic, no tripod positioning and no use of accessory muscles Cardiovascular: Regular rate and rhythm. Normal S1 and S2 Skin: No rashes or lesions noted Neuro: Patient oriented x3 Extremities: Normal to inspection and Yes no clubbing, cyanosis or edema PFSH Medical History CAD (coronary artery disease) Restless leg syndrome Hypertension, essential HLD (hyperlipidemia) Surgical History Hx of cardiac cath (~09/2019) S/P triple vessel bypass (~09/2019) History of colonoscopy History of total left knee replacement (TKR) Family History Father Myocardial infarction Social History Housing: House Alcohol intake: current Alcohol intake frequency: a few times a month Patient Tobacco Use Status: Former Tobacco user Tobacco use type: Cigarette Years Smoked: 2 e-Cigarette/Vaping Use: Never Used Second Hand Smoke Exposure: Yes service: No Current occupational status: retired Cognitive needs: No Hearing needs: No Vision needs: No Review of Systems Const All systems reviewed & are unremarkable except as noted in HPI and below Physical Exam Vital Signs: Last Vital Signs Temp 98.1 F 11/21/24 11:35 Pulse 98 11/21/24 11:39 BP 172/108 H 11/21/24 11:35 Pulse Ox 94 11/21/24 11:39 Oxygen Delivery Method Room Air 11/21/24 11:39 BMI result Body Mass Index 28.4 Assessment & Plan Assessment & Plan (1) Lower respiratory infection (e.g., bronchitis, pneumonia, pneumonitis, pulmonitis): Code(s): J22 - Unspecified acute lower respiratory infection Plan: VSS, pt well appearing and PE unremarkable - Albuterol inhaler prescribed to manage breathing difficulties and mitigate blood pressure effects from previous inhaler use. - Increased fluid intake recommended to ease throat congestion. - Z-[place] azithromycin prescribed for its anti-inflammatory benefits to assist with respiratory symptoms. - Discontinuation of primatene mist advised due to its blood pressure effects. - Awaiting flu, COVID-19, and RSV test results for further treatment direction. Patient was informed and verbally consented to the use of an ambient scribe for clinic note documentation during this visit Orders: Orders SARS-CoV2/FLU/RSV Today R09.89 - Other specified symptoms and signs involving the circulatory and respiratory systems Medications: New azithromycin For 250 mg dose pack: take 500 mg today (day 1), then 250 mg for 4 days (days 2-5) PO 6 tabs 0RF albuterol sulfate 90 mcg/actuation 2 puffs inhalation Q6H PRN 8.5 grams 0RF shortness of breath or wheezing or cough inhalational spacing device (BreatheRite MDI Spacer) As directed 1 ea 0RF Coding Level of Care Code Est Pt Level 3 (06379) Diagnoses Lower respiratory infection (e.g., bronchitis, pneumonia, pneumonitis, pulmonitis) J22
[2024-11-21 11:35] VITALS: BP 172/108; PULSE 100; TEMP 36.7; O2SAT 93; BMI 28.4
[2024-11-21 11:39] VITALS: BP 148/98; PULSE 98; O2SAT 94
== END 2024-11-21 12:22 | disposition home or self-care (01) ==
PROVIDERS: PCP Internal Medicine; Visit Provider Physician Assistant
DX: J22 Unspecified acute lower respiratory infection (principal)

== ENCOUNTER 2024-11-21 12:09 | Outpatient (REF) | payer OTHER, SELFPAY ==
[2024-11-21 14:22] LABS: Influenza A PCR NEGATIVE (Negative); Influenza B PCR NEGATIVE (Negative); Resp Syncy Virus RNA Qual PCR NEGATIVE (Negative); SARS COV2 PCR INHOUSE NEGATIVE (Negative)
== END 2024-11-21 12:10 | disposition home or self-care (01) ==
LOC: HO.LAB 12:09
PROVIDERS: Visit Provider Physician Assistant
DX: J22 Unspecified acute lower respiratory infection (principal); R09.89 Other specified symptoms and signs involving the circulatory and respiratory systems
CPT/HCPCS: 0241U

== ENCOUNTER → 2025-01-07 08:08 | Outpatient (REF) | payer OTHER, SELFPAY ==
--- NOTE | ~2025-01-07 | NM_ITS ---
Lexiscan Myocardial perfusion study Indication: Coronary artery disease Technique: The patient was brought in for a Lexiscan perfusion study on 01/07/2025 and was injected 0.4 mg of Lexiscan intravenously. Within a minute of this injection 30 mCi of sestamibi was given intravenously. Images were obtained using the SPECT gamma camera interlaced with the gating device. Images were obtained in supine position. Resting perfusion study was performed on 01/08/2025. Patient was administered 30 mCi of sestamibi intravenously at rest. Images were then obtained in supine position. Total DLP 30 mGy-cm. Images were processed with the software and compared side to side in short axis, horizontal long axis and vertical long axis views. Findings: Raw aquisition reviewed. The stress perfusion study showed decreased tracer uptake along the inferior wall. There is improvement with CT attenuation correction suggestive of diaphragmatic attenuation artifact. The gated study shows normal LV systolic function with calculated LVEF of 62%. LV cavity is normal in size. The gated study shows normal wall thickening and contraction of segments. Resting study shows diminished tracer uptake along the inferior wall. There is improved uptake with CT attenuation correction suggestive of diaphragmatic attenuation artifact. Gating at rest reveals normal wall motion with ejection fraction at 58%. The findings are consistent with fixed inferior perfusion defect congestive of diaphragmatic attenuation artifact. No clear reversible defects. NM/NM cardiolite stress test Impression: 1. Myocardial perfusion imaging study shows normal myocardial perfusion. 2. Gated LVEF is 62% during stress and 58% during rest. 3. Transient ischemic dilatation not present. EKG component of the test reported separately. Electronically signed by: Willian Palma MD 01/09/2025 12:43 PM EDT
--- NOTE | 2025-01-07 08:12 | CA_ITS ---
Acquisition Time: 2025-01-07 08:32:03 Total Exercise Time: 00:06:35 Test Indications: Dyspnea,Pre-Op Evaluation Medications: ASA ATORVASTATIN EZETIMIBE METOPROLOL PRAMIPEXOLE Protocol: GORGE Max HR: 118 BPM 79% of Pred: 149 BPM Max BP: 172/96 mmHG Max Work Load: 7.9 METS Exercise stress test with exercise 6 mins 35 secs of Gorge Protocol, achieving 73% MPHR, with frequent PACs and PVC, no chest pain. Test switched to Lexiscan. Pharmacological stress test with Lexiscan while pt continued to walk slow on treadmill, with reports of SOB and dizziness, with isolated PVCs, with normotensive response to injection. Nondiagnostic EKG for ischemia. In recovery, pt was treated with IVP Aminophylline 75 mg to reverse Lexiscan after which pt feeling back to baseline. Nuclear images pending. Test reviewed with Dr. Palma. Referred By: Shorty Avila Electronically Signed By: Franki Bernal
== END ==
LOC: HO.CARD 08:08
PROVIDERS: PCP Internal Medicine; Visit Provider Internal Medicine Cardiovascular Disease
DX: I25.10 Atherosclerotic heart disease of native coronary artery without angina pectoris (principal)
CPT/HCPCS: 78452; 93017; A9500; J0280; J2785

== ENCOUNTER → 2025-01-07 08:12 | Outpatient (BNV) | payer OTHER, SELFPAY | PROVIDERS: PCP Internal Medicine | DX: I25.10 Atherosclerotic heart disease of native coronary artery without angina pectoris (principal) | CPT/HCPCS: 78452; 93016; 93018 ==

== ENCOUNTER 2025-01-22 11:21 | Outpatient (AMB) | payer OTHER, SELFPAY ==
[2025-01-22 11:26] VITALS: BP 150/98; PULSE 93; O2SAT 98; BMI 28.5
--- NOTE | 2025-01-22 11:26 | A.OFFPC_ITS ---
Vital Signs 01/22/25 11:26 Height 5 ft 7 in Weight 182 lb BMI 28.5 BP 150/98 H Blood Pressure Location Lt brachial Position Sitting Pulse 93 Pulse Source Pulse Oximeter Pulse Oximetry (%) 98 Intake Visit Reasons: PE Allergies No Known Allergies Allergy (Verified 01/22/25 11:27) Medication List - Last Reconciled 01/22/25 by Yoli Mathew MD aspirin (Ecotrin Low Strength) 81 mg PO DAILY atorvastatin 80 mg PO DAILY ezetimibe 10 mg PO DAILY inhalational spacing device (BreatheRite MDI Spacer) As directed metoprolol succinate ER 25 mg PO DAILY pramipexole 0.75 mg PO BEDTIME 90 days Tobacco use date assessed: 01/22/25 Fall risk assessment: No Falls in past year Last assessed Fall Risk: 01/22/25 Dental Screening Dental Screen Date: 01/22/25 Did you have a dental visit in the last 12 months?: Yes Did you have a dental problem in the last 6 months where you did not have access to dental care?: No Was dental information given to patient?: Patient has dentist HPI PE HPI Details History of Present Illness Physical exam appointment Hypertension: - The patient has persistently elevated blood pressure readings during clinic visits, with the current measurement being 150/98 mmHg. - At home, blood pressure readings are r eportedly normal at 118/78 mmHg. - The patient associates high clinic blo od pressure readings with anxiety related to doctor visits. History of Respiratory Syncytial Virus (RSV) infection: - [facility] and has since suffered intermittent shortness of breath. Coronary Artery Disease status post-bypass surgery: - The patient had a bypass surgery, also had recent normal cardiac CAT scan and nuclear stress test. Under care of [facility] Restless Leg Syndrome: - The patient experiences symptoms manag ed by taking the prescribed medication each night. Medical History: - Hypertension - Coronary Artery Disease - history of early 2023 Respiratory Sync ytial Virus (RSV) infection - Restless Leg Syndrome - Prediabetes Surgical History: - Coronary artery bypass grafting - Bilateral knee replacement - Testicular surgery for the removal of a benign mass Social History: - Denies use of tobacco currently; smoke d briefly as a teenager - Occasionally uses cannabis - Has lost approximately 10 pounds recen tly - No current exercise or activity level is specified Health Maintenance - Tetanus vaccination needed since last received in 2003 - Pneumonia vaccine record not found and considered necessary - Scheduled colonoscopy needs following rescheduling - Annual blood test recommended with an emphasis on checking vitamin D levels - Recent normal cardiac CAT scan and nuc lear stress test [place] [facility] - Follow-up scheduled with urologist for testicular examination - Dermatology appointment for skin asses sment Medications - Atorvastatin 80 mg for coronary artery disease - Zetia for cholesterol management - Aspirin as prescribed by Dr. Avila for cardiovascular prophylaxis - Metoprolol for blood pressure manageme nt - Pramipexol for Restless Leg Syndrome Patient Instructions - Bring your home blood pressure monitor to your next appointment. - Schedule and complete a blood test, pr eferably in the morning. - Follow up on vaccinations at the pharm acy to ensure they are up to date, particularly tetanus and pneumonia vaccines. - Report any increased frequency of chance thing difficulties. - Attend the scheduled urology appointme nt for testicular assessment and dermatology appointment for skin evaluation. Follow-up six-month for medication management pramipexole Review of Systems - General: No fever no chills - Neurological: No headaches no dizzin ess - Ear nose throat: No sore throat no hearing difficulty no ear pain - Cardiovascular: No syncope, no chest pain, no palpitations - Gastrointestinal: No nausea vomiting or diarrhea - Endocrine: No polyuria polydipsia no heat intolerance - Genitourinary: No dysuria - Skin: No new complaints Physical Exam General: Cooperative, healthy appearing, comfortable, no acute distress Orientation: Patient oriented x3 Head: Normal to inspection Ears: Within normal limit visually Nose: Normal external nose present Face and sinus: Normal facial exam Eyes: Appearance normal, extraocular movement intact pupils reactive Neck: Normal visual inspection and supple Respiratory: Normal respiratory effort and able to speak in complete sentences. Clear to auscultation, no stridor Cardiovascular: S1 and S2 RRR GI: Normal to inspection. Soft to palpation and nontender Skin: Turgor normal, no acute findings Neuro: Patient oriented x3, motor sensory intact, balance intact, tandem pass Extremities: Normal to inspection [facility] Medical History CAD (coronary artery disease) Restless leg syndrome Hypertension, essential HLD (hyperlipidemia) Surgical History Hx of cardiac cath (~09/2019) S/P triple vessel bypass (~09/2019) History of colonoscopy History of total left knee replacement (TKR) Family History Father Myocardial infarction Social History Housing: House Alcohol intake: current Alcohol intake frequency: a few times a month Patient Tobacco Use Status: Former Tobacco user Tobacco use type: Cigarette Years Smoked: 2 e-Cigarette/Vaping Use: Never Used Second Hand Smoke Exposure: Yes service: No Current occupational status: retired Cognitive needs: No Hearing needs: No Vision needs: No Questionnaire PHQ-9 Over the last 2 weeks, how often have you been bothered by any of the following problems? 1. Little interest or pleasure in doing things: not at all 2. Feeling down, depressed, or hopeless: not at all 3. Trouble falling or staying asleep, or sleeping too much: not at all 4. Feeling tired or having little energy: not at all 5. Poor appetite or overeating: not at all 6. Feeling bad about yourself - or that you are a failure or have let yourself or your family down: not at all 7. Trouble concentrating on things, such as reading the newspaper or watching television: not at all 8. Moving or speaking so slowly that other people could have noticed. Or the opposite - being so fidgety or restless that you have been moving around a lot more than usual: not at all 9. Thoughts that you would be better off or of hurting yourself in some way: not at all Total score: 0 Depression Screening Interpretation: Negative Depression Screening Done: Yes 09029 - PHQ-9 Billing: Yes Source: Developed by Drs. Woody Feliciano, Fabi Barney, Pernell Berkowitz and colleagues, with an educational dany from [employer]. Thrive Questionnaire Date Thrive assessed: 01/22/25 I am a: Patient What is your living situation today?: I have a steady place to live Within the past 12 months, did the food you bought not last and you didn't have the money to get more?: Never true Within the past 12 months, did you worry whether your food would run out before you got money to buy more?: Never true Do you have trouble paying for medicines?: No Do you have trouble getting transportation to medical appointments?: No Do you have trouble paying your heating and electricity bill?: No Do you have trouble taking care of your child, family member or friend?: No Do you have trouble with day-to-day activities such as bathing, preparing meals, shopping, managing finances, etc.?: No Are you currently unemployed and looking for a job?: No Are you interested in more education?: No Please select the resources that you would like help with: None Currently or been in a relationship where the following occur: No concerns reported THRIVE Score: 0 AUDIT C Alcohol Use Questionnaire (AUDIT-C) 1. How often do you have a drink containing alcohol?: Monthly or less 2. How many drinks containing alcohol do you have on a typical day when you are drinking?: 1 or 2 3. How often do you have six or more drinks on one occasion?: Never Total Score: 1 Score Reviewed/Action Taken: Yes KATI-7 AMB Questionnaire KATI-7 Date KATI - 7 assessed: 01/22/25 Feeling nervous, anxious, or on edge: 0 = Not at all Not being able to stop or control worryin = Not at all Worrying too much about different things: 0 = Not at all Trouble relaxin = Not at all Being so restless that it is hard to sit still: 0 = Not at all Becoming easily annoyed or irritable: 0 = Not at all Feeling afraid as if something awful might happen: 0 = Not at all Total KATI-7 score (0-4 normal; 5-9 mild; 10-14 moderate; 15-21 severe): 0 Source: Developed by Drs. Woody Feliciano, Fabi Barney, Pernell Berkowitz and colleagues, with an educational dany from [employer]. KATI-7 Assessment Billing KATI-7 Assessment Tool: KATI-7 Assessment 66828 Physical exam (Primary Care) Vital Signs: Last Vital Signs Pulse 93 01/22/25 11:26 BP 150/98 H 01/22/25 11:26 Pulse Ox 98 01/22/25 11:26 BMI result Body Mass Index 28.5 Tobacco/Smoking Status: Tobacco use Status Tobacco use date assessed 01/22/25 01/22/25 11:29 Patient Tobacco Use Status Former Tobacco user 01/22/25 11:29 Tobacco use type Cigarette 01/22/25 11:29 e-Cigarette/Vaping Use Never Used 01/22/25 11:29 PHQ-9: PHQ-9 Score PHQ-9: Total score 0 01/22/25 11:29 Depression Screening Interpretation: Negative Thrive Assessment: Date of Thrive Assessment Date Thrive assessed 01/22/25 01/22/25 11:29 Currently or been in a relationship where the following occur: No concerns reported Coding Level of Care Code Est Pt Level 3 (60513) Est Pt Prev Care >65y(41774) Diagnoses Encounter for general adult medical examination with abnormal findings Z00.01 Restless leg syndrome G25.81 Impaired fasting blood sugar R73.01 Coronary artery disease involving [place] coronary artery of [place] heart without angina pectoris I25.10 Associated angina: without angina Coronary Disease-Associated Artery/Lesion type: [place] artery [place] vs. transplanted heart: [place] heart Hypertension, essential I10 Additional Codes KATI-7 Assessment Billing - KATI-7 Assessment Tool: KATI-7 Assessment 47798 ([id number]) PHQ-9 - 98169 - PHQ-9 Billing: Yes ([id number]) Assessment & Plan Assessment & Plan (1) Encounter for general adult medical examination with abnormal findings: Code(s): Z00.01 - Encounter for general adult medical examination with abnormal findings Category: Medical (2) Restless leg syndrome: Code(s): G25.81 - Restless legs syndrome Category: Medical (3) Impaired fasting blood sugar: Code(s): R73.01 - Impaired fasting glucose Category: Medical (4) CAD (coronary artery disease): Code(s): I25.10 - Atherosclerotic heart disease of [place] coronary artery without angina pectoris Category: Medical Qualifiers: Associated angina: without angina Coronary Disease-Associated Artery/Lesion type: [place] artery [place] vs. transplanted heart: [place] heart Qualified Code(s): I25.10 - Atherosclerotic heart disease of [place] coronary artery without angina pectoris (5) Hypertension, essential: Code(s): I10 - Essential (primary) hypertension Category: Medical Plan History of Present Illness Physical exam appointment Hypertension: - The patient has persistently elevated blood pressure readings during clinic visits, with the current measurement being 150/98 mmHg. - At home, blood pressure readings are reportedly normal at 118/78 mmHg. - The patient associates high clinic blood pressure readings with anxiety related to doctor visits. History of Respiratory Syncytial Virus (RSV) infection: - Patient experienced RSV infection in June 2023 and has since suffered intermittent shortness of breath. Coronary Artery Disease status post-bypass surgery: - The patient had a bypass surgery, also had recent normal cardiac CAT scan and nuclear stress test. Under care of [facility] Restless Leg Syndrome: - The patient experiences symptoms managed by taking the prescribed medication each night. Medical History: - Hypertension - Coronary Artery Disease - history of early 2023 Respiratory Syncytial Virus (RSV) infection - Restless Leg Syndrome - Prediabetes Surgical History: - Coronary artery bypass grafting - Bilateral knee replacement - Testicular surgery for the removal of a benign mass Social History: - Denies use of tobacco currently; smoked briefly as a teenager - Occasionally uses cannabis - Has lost approximately 10 pounds recently - No current exercise or activity level is specified Health Maintenance - Tetanus vaccination needed since last received in 2003 - Pneumonia vaccine record not found and considered necessary - Scheduled colonoscopy needs following rescheduling - Annual blood test recommended with an emphasis on checking vitamin D levels - Recent normal cardiac CAT scan and nuclear stress test [place] [facility] - Follow-up scheduled with urologist for testicular examination - Dermatology appointment for skin assessment Medications - Atorvastatin 80 mg for coronary artery disease - Zetia for cholesterol management - Aspirin as prescribed by Dr. Avila for cardiovascular prophylaxis - Metoprolol for blood pressure management - Pramipexol for Restless Leg Syndrome Patient Instructions - Bring your home blood pressure monitor to your next appointment. - Schedule and complete a blood test, preferably in the morning. - Follow up on vaccinations at the pharmacy to ensure they are up to date, particularly tetanus and pneumonia vaccines. - Report any increased frequency of breathing difficulties. - Attend the scheduled urology appointment for testicular assessment and dermatology appointment for skin evaluation. Follow-up six-month for medication management pramipexole Orders: Orders Complete Blood Count Auto Diff Today G25.81 - Restless legs syndrome, I10 - Essential (primary) hypertension, I25.10 - Atherosclerotic heart disease of [place] coronary artery without angina pectoris, R73.01 - Impaired fasting glucose, Z00.01 - Encounter for general adult medical examination with abnormal findings Comprehensive [place]. Panel Fast Today G25.81 - Restless legs syndrome, I10 - Essential (primary) hypertension, I25.10 - Atherosclerotic heart disease of [place] coronary artery without angina pectoris, R73.01 - Impaired fasting glucose, Z00.01 - Encounter for general adult medical examination with abnormal findings Lipid Panel Today G25.81 - Restless legs syndrome, I10 - Essential (primary) hypertension, I25.10 - Atherosclerotic heart disease of [place] coronary artery without angina pectoris, R73.01 - Impaired fasting glucose, Z00.01 - Encounter for general adult medical examination with abnormal findings Vitamin D 25-OH (D2 and D3) Today G25.81 - Restless legs syndrome, I10 - Essential (primary) hypertension, I25.10 - Atherosclerotic heart disease of [place] coronary artery without angina pectoris, R73.01 - Impaired fasting glucose, Z00.01 - Encounter for general adult medical examination with abnormal findings Medications: Refilled pramipexole 0.75 mg PO BEDTIME 90 tabs 1RF 90 days G25.81 - Restless legs syndrome
== END 2025-01-22 11:52 | disposition home or self-care (01) ==
LOC: HO.HMCC 11:22
PROVIDERS: PCP Internal Medicine; Visit Provider Internal Medicine
DX: Z00.01 Encounter for general adult medical examination with abnormal findings (principal); I10 Essential (primary) hypertension; G25.81 Restless legs syndrome; R73.01 Impaired fasting glucose; I25.10 Atherosclerotic heart disease of native coronary artery without angina pectoris

== ENCOUNTER → 2025-01-22 11:21 | Outpatient (BNVA) | payer OTHER, SELFPAY | PROVIDERS: PCP Internal Medicine; Visit Provider Internal Medicine | DX: Z00.01 Encounter for general adult medical examination with abnormal findings (principal); G25.81 Restless legs syndrome; R73.01 Impaired fasting glucose; I25.10 Atherosclerotic heart disease of native coronary artery without angina pectoris; I10 Essential (primary) hypertension; Z95.1 Presence of aortocoronary bypass graft | CPT/HCPCS: 96127 ==

== ENCOUNTER 2025-01-30 13:44 | Outpatient (AMB) | payer OTHER, SELFPAY ==
--- NOTE | 2025-01-30 14:02 | MHC.OFFVIS ---
Intake Visit Reasons: Lump on testicle Intake Note: Patient is present for LUMP ON TESTICLE Urology Medication:NONE Antibiotic Allergy:NONE Blood Thinner:ASPIRIN TODAY'S PVR:0ML'S [employer] Supervisor Required: No Allergies No Known Allergies Allergy (Verified 01/30/25 17:01) Medication List - Last Reconciled 01/30/25 by BEAR Todd- aspirin (Ecotrin Low Strength) 81 mg PO DAILY atorvastatin 80 mg PO DAILY ezetimibe 10 mg PO DAILY inhalational spacing device (BreatheRite MDI Spacer) As directed metoprolol succinate ER 25 mg PO DAILY pramipexole 0.75 mg PO BEDTIME 90 days HPI Comments Details: Woody Gonzales is a very pleasant 70-year-old male patient of Dr. Mathew. He has a past medical history of CAD, restless leg syndrome, hyperlipidemia, and hypertension. He presents to the office today as a new patient for right-sided testicular lump. In discussion with the patient today he reports noting over the last couple of months he has been having intermittent issues with right-sided discomfort and upon self-examination felt a lump. He reports having followed up with his PCP at which time recommendations were made for urology referral for further assessment evaluation. He does report previously following up with Dr. Coulter many years ago and having had a scrotal procedure in the past however is unsure as to what the name and or procedure was. However in review of previous medical records it does appear patient underwent hydrocele and spermatocelectomy. On assessment of the patient today the penis is uncircumcised and small left epididymal head cyst noted as well as right small/moderate epididymal head cysts palpated otherwise no open areas, lesions, and or drainage noted. He does report intermittent discomfort as he typically likes to ride his bicycle. He otherwise denies any bothersome urinary issues. He denies denies urinary urgency, urinary frequency, incontinence, nocturia, hematuria, dysuria, foul smelling urine, changes to urinary stream, flank pain, fever, and or chills. She is happy with her current voiding parameters. We did discuss at length potential causes of epididymal head cyst as well as further interventions and risks and benefits of these interventions. All questions were answered. He otherwise offers no other issues or concerns at this time. [facility] Medical History CAD (coronary artery disease) Restless leg syndrome Hypertension, essential HLD (hyperlipidemia) Surgical History Hx of cardiac cath (~09/2019) S/P triple vessel bypass (~09/2019) History of colonoscopy History of total left knee replacement (TKR) Family History Father Myocardial infarction Social History Housing: House Alcohol intake: current Alcohol intake frequency: a few times a month Patient Tobacco Use Status: Former Tobacco user Tobacco use type: Cigarette Years Smoked: 2 e-Cigarette/Vaping Use: Never Used Second Hand Smoke Exposure: Yes service: No Current occupational status: retired Cognitive needs: No Hearing needs: No Vision needs: No Review of Systems Const All systems reviewed & are unremarkable except as noted in HPI and below Physical Exam Const General: cooperative, healthy appearing, comfortable, no acute distress, well developed, alert and awake Orientation/consciousness: patient oriented x3 Limitations: no limitations HEENT Head: Yes normal to inspection, Yes normocephalic and Yes atraumatic Ears: hearing grossly normal bilaterally Eyes General: appearance normal, both eyes and all related structures Neck Neck: Yes normal visual inspection and Yes trachea midline Chest Chest palpation & inspection: normal inspection of the chest Resp Effort & Inspection: normal respiratory effort and able to speak in complete sentences Cardio Rate: regular rate GI Inspection: Yes normal to inspection General: Yes no CVA tenderness Penis: normal penis and uncircumcised Meatus: meatus normal Scrotum: other (as per HPI) Back/Spine/Pelvis Back: no CVA tenderness Skin General skin exam: no rashes or lesions noted Neuro General: patient oriented x3 Extrem General: Yes normal to inspection Psych Appearance: grossly normal and well kempt Mental Status: mental status grossly normal Speech and movement: Normal speech and movement present and Clear speech present Affect: normal affect Attitude: cooperative Thought process: Normal thought process present Thought content: Normal thought content present Office Procedures Post Void Residual Post Residual Void Post Void Residual (PVR): 0 [id number] Void Residual by ultrasound Results AMB Urinalysis, Automated UA Leukoctes 0 Adam/uL Last Edit by Elzbieta Quesada [facility] on 01/30/25 14:25 UA Nitrite Negative Last Edit by Elzbieta Quesada [facility] on 01/30/25 14:25 UA Urobilinogen 0.2 mg/dL Last Edit by Elzbieta Quesada [facility] on 01/30/25 14:25 UA Protein 15 mg/dL Last Edit by Elzbieta Quesada [facility] on 01/30/25 14:25 UA pH 6.0 Last Edit by Elzbieta Quesada, [facility] on 01/30/25 14:25 UA Blood 0 Anirudh/uL Last Edit by Elzbieta Quesada [facility] on 01/30/25 14:25 UA Specific [place] 1.020 Last Edit by Elzbieta Quesada [facility] on 01/30/25 14:25 UA Ketone Negative Last Edit by Elzbieta Quesada [facility] on 01/30/25 14:25 UA Bilirubin 0 mg/dL Last Edit by Elzbieta Quesada [facility] on 01/30/25 14:25 UA Glucose 0 mg/dL Last Edit by Elzbieta Quesada [facility] on 01/30/25 14:25 Results Reviewed Results Reviewed: Laboratory Last Values Urine pH (Auto) 6.0 01/30/25 14:24 Specific [place] (Auto) 1.020 01/30/25 14:24 Urine Protein (Auto) 15 mg/dL 01/30/25 14:24 Glucose (UA)(Auto) 0 mg/dL 01/30/25 14:24 Urine Ketones (Auto) Negative 01/30/25 14:24 Urine Blood (Auto) 0 Anirudh/uL 01/30/25 14:24 Urine Nitrite (Auto) Negative 01/30/25 14:24 Urine Bilirubin (Auto) 0 mg/dL 01/30/25 14:24 Urine Urobilinogen (Auto) 0.2 mg/dL 01/30/25 14:24 Leukocyte Esterase (Auto) 0 Adam/uL 01/30/25 14:24 Assessment & Plan Assessment & Plan (1) Epididymal cyst: Code(s): N50.3 - Cyst of epididymis Category: Medical Plan: Risks, benefits and alternatives to therapy were discussed. These include but are not limited to infection, bleeding, damage to local organs and tissues, need for further interventions. ? Anesthetic risks regarding cardiac arrhythmia, blood clots, and potential mortality were discussed. The patient understands the typical recovery time and the outpatient nature of the procedure. After consideration of these risks the patient gives full informed consent and they wish to move ahead with the procedure. Plan In office urinalysis results with the patient today; as noted above. PVR 0ml's. We discussed epididymal head cysts interventions and risks and benefits of these interventions. He would like to proceed with removal. All questions were answered. He denies any bothersome urinary issues or concerns. He reports be happy with current voiding parameters. Will schedule for right-sided epididymal head cyst removal. Follow-up per doctor's orders; or sooner with any issues, concerns, and or questions. Orders: Orders AMB Urinalysis Automated Today Z13.9 - Encounter for screening, unspecified Patient Instructions: The patient had an opportunity to ask questions regarding the treatment plan. All questions were answered. Physical exam, labs, and imaging were discussed and reviewed in detail. As well as risks, benefits, and discussion of treatment choices. No major barriers to understanding were identified. The patient expressed understanding and agreement with the above treatment plan. The patient was made aware they should contact our office by phone for worsening of their current condition, the appearance of new symptoms, or with any questions or concerns. Compliance is encouraged with any medications and follow up testing that is ordered. It is a privilege to be allowed the opportunity to participate in? your urological care.? Again, if you have any questions or concerns If you have any questions or concerns please do not hesitate to contact me. The office is [phone]. This note is constructed using voice recognition software. While every effort has been made to ensure accuracy buckle coverer errors may have been included. Yours sincerely, SIMONE Todd Coding Level of Care Code New Pt Level 4 (99202) Diagnoses Epididymal cyst N50.3 CPT Codes Post Residual Void - PVR CPT Code: 11935-Sxbq Void Residual by ultrasound ([id number])
== END 2025-01-30 15:38 | disposition home or self-care (01) ==
LOC: HO.HUSH 13:45
PROVIDERS: PCP Internal Medicine; Visit Provider Nurse Practitioner Family
DX: Z13.9 Encounter for screening, unspecified (principal); N50.3 Cyst of epididymis
CPT/HCPCS: 99204

== ENCOUNTER → 2025-01-30 13:44 | Outpatient (BNVA) | payer OTHER, SELFPAY | PROVIDERS: PCP Internal Medicine; Visit Provider Nurse Practitioner Family | DX: N50.3 Cyst of epididymis (principal) | CPT/HCPCS: 51798; 81003 ==

== ENCOUNTER 2025-02-08 07:16 | Outpatient (REF) | payer OTHER, SELFPAY ==
[2025-02-08 10:34] LABS: MANUAL DIFF FLAG NO
[2025-02-08 10:52] LABS: Hematocrit 46.6 % (42.0-52.0); Hemoglobin 15.9 g/dl (14.0-18.0); Imm Gran Abs Auto 0.02 X10*3/uL (0.00-0.03); Imm Gran Pct Auto 0.2 % (0.0-0.4); Lymphocytes Absolute Auto 2.9 X10*3/uL (1.2-4.9); Mean Corpuscular HGB Conc 34.1 g/dl (31.0-36.0); Mean Corpuscular Hemoglobin 31.4 pg (27.0-33.0); Mean Corpuscular Volume 91.9 fL (80.0-98.0); NRBC Abs Auto 0.000 X10*3/uL (0.0-0.012); NRBC Pct Auto 0.0 /100WBC (0.0-0.2); Platelet Count 234 X10*3/uL (160-400); Red Blood Count 5.07 X10*6/uL (4.60-5.80); White Blood Count 8.4 X10*3/uL (4.8-10.8)
[2025-02-08 11:04] LABS: Alanine Aminotransferase 25 U/L (0-40); Albumin Level 4.4 g/dL (3.5-5.0); Alkaline Phosphatase 57 U/L (39-117); Anion Gap 13 (12-20); Aspartate Amino Transferase 28 U/L (5-37); Blood Urea Nitrogen 16 mg/dL (9-16); Calcium 9.3 mg/dL (8.4-10.2); Carbon Dioxide 30 mmol/L (22-29); Chloride 106 mmol/L (96-108); Cholesterol 206 mg/dL (<200); Estimated Glomerular Filt Rate > 60; HDL Cholesterol 39 mg/dL (>40); Potassium 4.8 mmol/L (3.3-5.1); Sodium 144 mmol/L (135-145); Total Protein 7.0 g/dL (6.5-8.0); Triglycerides 190 mg/dL (<150)
[2025-02-14 14:38] LABS: Vitamin D 25-OH, D2 <4 ng/mL; Vitamin D 25-OH, D3 33 ng/mL; Vitamin D 25-OH, Total 33 ng/mL (30-100)
== END 2025-02-08 07:17 | disposition home or self-care (01) ==
LOC: HO.HMGCLDS 07:16
PROVIDERS: PCP Internal Medicine; Visit Provider Internal Medicine
DX: Z00.01 Encounter for general adult medical examination with abnormal findings (principal); I10 Essential (primary) hypertension; I25.10 Atherosclerotic heart disease of native coronary artery without angina pectoris; G25.81 Restless legs syndrome; R73.01 Impaired fasting glucose
CPT/HCPCS: 36415; 80053; 80061; 82306; 85025

== ENCOUNTER 2025-04-04 10:30 | Outpatient (AMB) | payer OTHER, SELFPAY ==
[2025-04-04 10:31] VITALS: BP 146/80; PULSE 66; BMI 29.3
--- NOTE | 2025-04-04 10:31 | MHC.OFFVIS ---
Vital Signs 04/04/25 10:31 Height 5 ft 7 in Weight 187 lb 6.287 oz BMI 29.3 BP 146/80 H Blood Pressure Location Lt brachial Position Sitting Pulse 66 Intake Visit Reasons: Preop/ Urlogy procedure/ fu cardiac testing Intake Note: Pre-op clearance with ekg for Urlogy procedure after cardiac testing Aluminum Siding Applicator Required: No Allergies No Known Allergies Allergy (Verified 01/30/25 17:01) Medication List - Last Reconciled 04/04/25 by Shorty Avila MD aspirin (Ecotrin Low Strength) 81 mg PO DAILY ezetimibe 10 mg PO DAILY inhalational spacing device (BreatheRite MDI Spacer) As directed metoprolol succinate ER 25 mg PO DAILY pramipexole 0.75 mg PO BEDTIME 90 days HPI Comments Details: Woody comes for follow-up. He is planned to undergo urologic surgery for epididymal cyst in the near future. Recently underwent myocardial perfusion imaging which is within normal limits. He has no new active cardiac symptoms. He stopped taking atorvastatin for some time in his LDL is the result has increased to 129. He said the pills were too big. He was having difficulty swallowing them. Denies any smoking. Takes all her other medications including blood pressure regimen. He says blood pressure at home being measured runs systolic 120 range. He said he has white coat hypertension. He denies any exertional chest pain. No shortness of breath, orthopnea, PND, leg edema. No claudication. No prolonged palpitation, lightheadedness, syncope. [facility] Medical History CAD (coronary artery disease) Restless leg syndrome Hypertension, essential HLD (hyperlipidemia) Surgical History Hx of cardiac cath (~09/2019) S/P triple vessel bypass (~09/2019) History of colonoscopy History of total left knee replacement (TKR) Family History Father Myocardial infarction Social History Housing: House Alcohol intake: current Alcohol intake frequency: a few times a month Patient Tobacco Use Status: Former Tobacco user Tobacco use type: Cigarette Years Smoked: 2 e-Cigarette/Vaping Use: Never Used Second Hand Smoke Exposure: Yes service: No Current occupational status: retired Cognitive needs: No Hearing needs: No Vision needs: No Review of Systems Const Denies chills, Denies fatigue, Denies fever(s), Denies frequent falls, Denies weakness, Denies weight gain and Denies weight loss ENT Denies dizziness Card Denies chest pain, Denies leg edema, Denies lightheadedness, Denies palpitations, Denies dyspnea, Denies dyspnea on exertion, Denies orthopnea and Denies other (loss of consciousness) Resp Denies cough, Denies dyspnea and Denies dyspnea on exertion GI Denies hematochezia and Denies change in stool character Musc Denies abnormal gait, Denies muscle weakness, Denies numbness, Denies radiating pain into limb and Denies tingling Neuro Denies abnormal gait, Denies dizziness, Denies frequent falls, Denies numbness, Denies tingling and Denies weakness Endo Denies fatigue and Denies palpitations Physical Exam Vital Signs: Last Vital Signs Pulse 66 04/04/25 10:31 BP 146/80 H 04/04/25 10:31 BMI result Body Mass Index 29.3 Const General: cooperative, healthy appearing, comfortable and no acute distress Orientation/consciousness: patient oriented x3 Neck Neck: Yes normal visual inspection and Yes no JVD Carotids: normal carotid upstroke Resp Effort & Inspection: normal respiratory effort Auscultation: clear to auscultation bilaterally, no crackles, no rales, no rhonchi, no wheezes and diminished lung sounds Cardio Jugular venous distension: no JVD Rate: regular rate Rhythm: regular rhythm Heart sounds: S1 normal heart sound present, S2 normal heart sound present, no gallops, no murmurs and no rubs Peripheral pulses: Peripheral pulses 2+ throughout GI Inspection: Yes normal to inspection Neuro General: patient oriented x3 Extrem General: Yes normal to inspection, No no pedal edema and No calf tenderness Office Procedures EKG Details: EKG shows normal sinus rhythm with septal infarct pattern [id number], Complete Assessment & Plan Assessment & Plan (1) CAD (coronary artery disease): Code(s): I25.10 - Atherosclerotic heart disease of [place] coronary artery without angina pectoris Category: Medical Qualifiers: Associated angina: without angina Coronary Disease-Associated Artery/Lesion type: [place] artery [place] vs. transplanted heart: absent[place] heart Qualified Code(s): I25.10 - Atherosclerotic heart disease of [place] coronary artery without angina pectoris Plan: CAD with remote coronary artery bypass grafting with recent myocardial perfusion imaging within normal limits. This carries good prognosis. Recommend to continue aspirin for life. Importance of continuing lipid modification to preserve detention patency of graft as well as progressive absent[place] coronary disease was discussed in details. Will prescribe rosuvastatin 40 mg daily. Advised lipid panel in 3 months time. Continue aggressive blood pressure control. (2) Hypertension, essential: Code(s): I10 - Essential (primary) hypertension Category: Medical Plan: Hypertension today's readings not well optimized although he said he has white coat hypertension. Measurements at home are within normal limits. Suggest to continue to pursue the same. Low-salt diet was discussed. Stress mitigation strategies were discussed. This will be pursued through your office. If you have any concerns or difficulty managing blood pressure please consult. Can start amlodipine 2.5 mg and uptitrate as needed if he persists with elevated blood pressure. (3) Preoperative cardiovascular examination: Code(s): Z01.810 - Encounter for preprocedural cardiovascular examination Plan: Preoperative cardiovascular risk stratification in this elderly gentleman with recent normal myocardial perfusion imaging with prior coronary artery bypass grafting for low risk surgery. He is currently optimized to undergo the procedure with low risk for perioperative cardiovascular morbidity mortality. Aspirin has been withheld for now but resume as soon as possible. Continue statin as well as blood pressure control in the perioperative period. Will follow up in the clinic in 1 year's time, sooner PRN. Thank you for allowing me to partake in his care Orders: Orders Lipid Panel 3 Months I25.10 - Atherosclerotic heart disease of [place] coronary artery without angina pectoris Medications: New rosuvastatin 40 mg PO DAILY 30 tabs 5RF Coding Level of Care Code Est Pt Level 4 (93183) Complex EM visit Add On G2211 Diagnoses Coronary artery disease involving absent[place]nee coronary artery of [place] heart without angina pectoris I25.10 Associated angina: without angina Coronary Disease-Associated Artery/Lesion type: [place] artery [place] vs. transplanted heart: absentee-[place]nee heart Hypertension, essential I10 Preoperative cardiovascular examination Z01.810 CPT Codes EKG - CPT: 75261-[id number], Complete ([id number])
== END 2025-04-04 10:57 | disposition home or self-care (01) ==
LOC: HO.HCS 10:30
PROVIDERS: PCP Internal Medicine; Visit Provider Internal Medicine Cardiovascular Disease
DX: I25.10 Atherosclerotic heart disease of native coronary artery without angina pectoris (principal); I10 Essential (primary) hypertension; Z01.810 Encounter for preprocedural cardiovascular examination
CPT/HCPCS: 93010; 99214; G2211

== ENCOUNTER → 2025-04-04 10:30 | Outpatient (BNVA) | payer OTHER, SELFPAY | PROVIDERS: PCP Internal Medicine; Visit Provider Internal Medicine Cardiovascular Disease | DX: Z01.810 Encounter for preprocedural cardiovascular examination (principal); I25.10 Atherosclerotic heart disease of native coronary artery without angina pectoris; I10 Essential (primary) hypertension; R94.31 Abnormal electrocardiogram [ECG] [EKG] | CPT/HCPCS: 93005 ==

== ENCOUNTER 2025-04-08 06:53 | Day surgery (SDC) | payer OTHER, SELFPAY ==
--- NOTE | 2025-04-03 14:06 | P.CONAN_ITS ---
Documented by User: Yanelis Nichols NP 04/05/25 08:21 HPI - Anesthesia Eval Consult details Narrative: 70 yr old male for Epididymectomy [place] [facility] [place]/04/25: Preoperative cardiovascular risk stratification in this elderly gentleman with recent normal myocardial perfusion imaging with prior coronary artery bypass grafting for low risk surgery. He is currently optimized to undergo the procedure with low risk for perioperative cardiovascular morbidity mortality. CAD: s/p triple vessel bypass; Jan 2025 stress test negative for ischemia, an echo was ordered but not yet done. Occasional marijuana use PMFSH Active Problems Active Problems: All Active Problems Epididymal cyst (Acute) Testicular lump (Acute) Lower respiratory infection (e.g., bronchitis, pneumonia, pneumonitis, pulmonitis) (Acute) Positive colorectal cancer screening using Cologuard test (Acute) Encounter for general adult medical examination with abnormal findings (Acute) Hemorrhage from nose (Acute) Obesity due to excess calories (Acute) Impaired fasting blood sugar (Acute) CAD (coronary artery disease) (Acute) Restless leg syndrome (Acute) Hypertension, essential (Acute) HLD (hyperlipidemia) (Acute) Past Medical History Medical History CAD (coronary artery disease) Restless leg syndrome Hypertension, essential HLD (hyperlipidemia) Family History Family History Father Myocardial infarction Surgical History Surgical History Hx of cardiac cath (~09/2019) S/P triple vessel bypass (~09/2019) History of colonoscopy History of total left knee replacement (TKR) Social History Social History Housing: House Alcohol intake: current Alcohol intake frequency: a few times a week Patient Tobacco Use Status: Former Tobacco user Tobacco use type: Cigarette Years Smoked: 2 e-Cigarette/Vaping Use: Never Used Second Hand Smoke Exposure: Yes Have you been hit, kicked, punched, or otherwise hurt by someone within the past year? If so, by whom?: No Are you DNR?: No Advance Directives: No Advance Directives Information Provided: Yes service: No Current occupational status: retired Cognitive needs: No Hearing needs: No Vision needs: No Meds Allergies Allergy/AdvReac Type Severity Reaction Status Date / Time No Known Allergies Allergy Verified 01/30/25 17:01 Exam Pertinent Lab Results Pertinent Lab Results: Laboratory Tests 02/08/25 07:21 WBC 8.4 RBC 5.07 Hgb 15.9 Hct 46.6 Plt Count 234 Sodium 144 Potassium 4.8 Carbon Dioxide 30 H BUN 16 Creatinine 0.91 Narrative Narrative: Cardiolite Stress Test 01/2025 Impression: 1. Myocardial perfusion imaging study shows normal myocardial perfusion. 2. Gated LVEF is 62% during stress and 58% during rest. 3. Transient ischemic dilatation not present. ECHO 2022 Conclusions: - The left ventricular systolic function is hyperdynamic. The calculated ejection fraction is 71% by biplane method. - LV peak systolic GLS -21.4%. - There is mild calcification of the aortic valve. - No obvious valvular pathology seen on this study. Documented by User: Kavin Hull MD 04/08/25 07:22 [facility] Past Medical History Medical History CAD (coronary artery disease) Restless leg syndrome Hypertension, essential HLD (hyperlipidemia) Family History Family History Father Myocardial infarction Family history of problems with anesthesia: No Surgical History Surgical History Hx of cardiac cath (~09/2019) S/P triple vessel bypass (~09/2019) History of colonoscopy History of total left knee replacement (TKR) History of Problems with Anesthesia: No Social History Social History Housing: House Alcohol intake: current Alcohol intake frequency: a few times a week Patient Tobacco Use Status: Former Tobacco user Tobacco use type: Cigarette Years Smoked: 2 e-Cigarette/Vaping Use: Never Used Second Hand Smoke Exposure: Yes Have you been hit, kicked, punched, or otherwise hurt by someone within the past year? If so, by whom?: No Are you DNR?: No Advance Directives: No Advance Directives Information Provided: Yes service: No Current occupational status: retired Cognitive needs: No Hearing needs: No Vision needs: No Meds Allergies Allergy/AdvReac Type Severity Reaction Status Date / Time No Known Allergies Allergy Verified 01/30/25 17:01 Exam Airway Mallampati Class: III TM Dist: >3cm Neck ROM: Full Loose/Missing/Broken Teeth: No Heart: RRR Lungs: CTA Assessment and Plan Assessment Anesthesia Assessment: Anesthesia Plan Discussed and Chart Reviewed Final Anesthetic Review Family History of Problems with Anesthesia: No History of Problems with Anesthesia: No NPO: Yes ASA Class: III Final Preanesthetic Review: No Changes in Pt Med Stat Patient Risk: Low Procedure Risk: Low Anesthetic Plan Anesthetic Plan: GA Disposition: Standard PACU
[2025-04-04 10:11] VITALS: BMI 28.5
[2025-04-08 07:02] VITALS: BP 159/92; PULSE 78; RESP 20; TEMP 37.1; O2SAT 96; BMI 29.0
[2025-04-08] MEDS: Lactated Ringers 500 ML 20 ML IVCONT (07:28)
--- NOTE | 2025-04-08 08:08 | P.HPSUR_ITS ---
Pre-Procedural Eval Section A - 24 Hr Update-Section A only Date of Service: 04/08/25 The patient is an INPATIENT: No Changes since office visit: No Cold of Flu in the past 2 weeks, No New Medical Problems, No Changes in Medication and No Patient answered all questions The patient has been examined within 24 hours of the surgical procedure. The History & Physical has been completed within 30 days and I have reviewed it.: Yes Section B - Complete if H&P > 30 days Chief Complaint: Cyst of epididymis Details of Present Illness: Right epididymal cyst Relevant Family History (Specify if Yes): No Relevant Social History: None Present Medications: see Short Stay Collaborative assessment Medical History: No relevant PMH History of Previous Operations: Relevant previous surgery/procedure and date(s) Allergies: Allergies Allergy/AdvReac Type Severity Reaction Status Date / Time No Known Allergies Allergy Verified 01/30/25 17:01 Review of Systems Sugical H&P ROS: Negative: Constitution, Cardiovascular, Respiratory, Neurological, Psychiatric, Hem-Onc, Allergic/Immunologic, Gastrointestinal, Genitourinary, Musculoskeletal, Integumentary, Endocrine and Eyes/E ars/Nose/Throat Exam Surgical H&P Exam: Normal: HEENT, Normal: Heart, Normal: Lungs, Normal: Extremities, Normal: Abdomen, Normal: Skin and Normal: Neurological Plan Diagnosis/Plan: Unchanged (Removal of recurrent right epididymal cyst) I have reviewed the history and physical and performed a pertinent physical examination on my patient. No changes have occurred unless specified. Time Spent With Patient Time: Total time managing care of this patient today ____ minutes.
--- NOTE | 2025-04-08 09:02 | W.PM.OPN ---
Operative Note Operative Note Date of Service: 04/08/25 Narrative: PreOperative Diagnosis: Right epididymal cyst Post Operative Diagnosis: Right epididymal cyst Procedure: Hydrocelectomy Surgeon: Dr Abner Vargas Anesthesia: General Indications for procedure: Right epididymal cyst with persistent discomfort. Ultrasound 3 cm mass Procedure: After informed consent was verified the patient was brought to the operating room and placed in a supine position. Anesthesia was administered per protocol. Patient was prepped and draped in a sterile fashion. Safety pause time-out was performed. Antibiotics being given. Local anesthetic was infiltrated under the skin in a horizontal fashion on the right scrotum. Additional lidocaine was infiltrated into the proximal portion of the testicular cord. Skin incision was made in a horizontal fashion using a blade through the dermis and subdermal layer. The tunica plane was thickened reflecting prior procedure approximately 20 years ago. The tunica was opened in a horizontal fashion. Fluid was removed with suction. The epididymal cyst was delivered through the incision. A stay suture was placed on the head of the epididymis to allow elevation. The identified cysts were removed carefully with sharp dissection. This allowed us to dissect overlying fascia and remove the cyst essentially intact. The base of the cyst was then cauterized for meticulous hemostasis. The testicle was placed back into a dependent portion of the scrotum. Overlying skin fascia layer was closed with a running 3-0 Vicryl suture. Skin was closed with interrupted 4-0 chromic sutures. Soft fluff sponges were placed with mesh pants as dressing. Local anesthetic was placed in inguinal cord for post procedure pain relief. Patient tolerated procedure well was extubated in operating room transferred in stable condition to the recovery area Pathology: Epididymal sac Drains: []
[2025-04-08 09:15] VITALS: BP 119/78; PULSE 57; RESP 20; TEMP 36.1; O2SAT 94
[2025-04-08 09:20] VITALS: BP 142/84; PULSE 59; RESP 18; O2SAT 97
[2025-04-08 09:25] VITALS: BP 146/81; PULSE 68; RESP 15; TEMP 36.2; O2SAT 93
[2025-04-08 09:30] VITALS: BP 141/90; PULSE 67; RESP 17; O2SAT 95
[2025-04-08 09:45] VITALS: BP 153/89; PULSE 56; RESP 12; TEMP 36.2; O2SAT 94
== END 2025-04-08 10:32 | disposition home or self-care (01) ==
PROVIDERS: PCP Internal Medicine; Visit Provider Urology
PROC: (CPT 55040; principal; 2025-04-08 08:20)
DX: N50.3 Cyst of epididymis (principal); I25.10 Atherosclerotic heart disease of native coronary artery without angina pectoris; Z95.1 Presence of aortocoronary bypass graft; I10 Essential (primary) hypertension; E78.5 Hyperlipidemia, unspecified; G25.81 Restless legs syndrome; Z79.82 Long term (current) use of aspirin; Z79.899 Other long term (current) drug therapy; Z96.652 Presence of left artificial knee joint; Z87.891 Personal history of nicotine dependence
CPT/HCPCS: 55040; 88304; J0690; J2003; J2250; J2704; J2795; J3010

== ENCOUNTER → 2025-04-08 06:53 | Outpatient (BNV) | payer OTHER, SELFPAY | PROVIDERS: PCP Internal Medicine; Visit Provider Urology | DX: N50.3 Cyst of epididymis (principal) | CPT/HCPCS: 55040 ==

== ENCOUNTER 2025-05-24 13:01 | Outpatient (AMB) | payer OTHER, SELFPAY ==
--- NOTE | 2025-05-24 13:02 | A.OFFVIS_ITS ---
Intake Visit Reasons: 6W PostOp- epididymal head cyst removal(set) Intake Note: Reason for Visit: Post Op Epididymal Head Cyst Removal (04/08/2025) Urology Meds: None Blood Thinners: Aspirin Labs: None Imaging: None Last PVR: None Director Construction Services Required: No Accompanied by: Self / Same As Patient Allergies No Known Allergies Allergy (Verified 05/24/25 13:04) HPI Comments Details: Woody Gonzales is a very pleasant 70-year-old male patient of Dr. Mathew. He has a past medical history of CAD, restless leg syndrome, hyperlipidemia, and hypertension. He presents to the office today as a new patient for right-sided testicular lump. In discussion with the patient today he reports noting over the last couple of months he has been having intermittent issues with right-sided discomfort and upon self-examination felt a lump. He reports having followed up with his PCP at which time recommendations were made for urology referral for further assessment evaluation. He does report previously following up with Dr. Coulter many years ago and having had a scrotal procedure in the past however is unsure as to what the name and or procedure was. However in review of previous medical records it does appear patient underwent hydrocele and spermatocelectomy. On assessment of the patient today the penis is uncircumcised and small left epididymal head cyst noted as well as right small/moderate epididymal head cysts palpated otherwise no open areas, lesions, and or drainage noted. He does report intermittent discomfort as he typically likes to ride his bicycle. He otherwise denies any bothersome urinary issues. Epididymal cyst - right side Underwent epididymal head cyst removal 04/30 Happy with current resolved [facility] Medical History CAD (coronary artery disease) Restless leg syndrome Hypertension, essential HLD (hyperlipidemia) Surgical History Hx of cardiac cath (~09/2019) S/P triple vessel bypass (~09/2019) History of colonoscopy History of total left knee replacement (TKR) Family History Father Myocardial infarction Social History (Reviewed 05/24/25 @ 13:05 by MARYAN Reardon Housing: House Alcohol intake: current Alcohol intake frequency: a few times a week Patient Tobacco Use Status: Former Tobacco user Tobacco use type: Cigarette Years Smoked: 2 e-Cigarette/Vaping Use: Never Used Second Hand Smoke Exposure: Yes service: No Current occupational status: retired Cognitive needs: No Hearing needs: No Vision needs: No Review of Systems Const Denies chills and Denies fever(s) Card Reports no additional complaints and Denies syncope Resp Denies cough GI Denies abdominal pain and Denies heartburn Reports as per HPI and Denies change in libido Neuro Denies syncope Psych Denies change in libido Endo Denies change in libido Physical Exam Const General: cooperative, healthy appearing, comfortable and no acute distress Orientation/consciousness: patient oriented x3 HEENT Face and sinus: Yes normal facial exam Mouth: moist mucous membranes Neck Neck: Yes normal visual inspection, Yes full ROM and Yes trachea midline Chest Chest palpation & inspection: normal inspection of the chest Resp Effort & Inspection: normal respiratory effort, able to speak in complete sentences and no respiratory distress GI Inspection: Yes normal to inspection Back/Spine/Pelvis Cervical Spine: normal cervical lordosis Thoracic/Lumbar Spine: thoracic and lumbar spine normal to inspection Skin General skin exam: no rashes or lesions noted Neuro General: patient oriented x3, gait normal, tone normal and moves all extremities Extrem General: Yes normal to inspection and Yes capillary refill normal Assessment & Plan Assessment & Plan (1) Epididymal cyst: Code(s): N50.3 - Cyst of epididymis Category: Medical Plan Six-month follow-up office Patient Instructions: This note is constructed using voice recognition software. While every effort has been made to ensure accuracy damper worker errors may have been included. Imaging studies, laboratory and physical exam results were discussed and reviewed in detail. No major barriers to patient understanding were identified. An opportunity to ask questions regarding the treatment plan was provided. All questions were answered. The patient expressed understanding and agreement with the above treatment plan. The patient is aware they should contact our office by phone for worsening of their current condition or the appearance of new urologic symptoms. Compliance is encouraged with any medications and followup testing that is ordered. It is a privilege to participate in the urologic care of your patient. If you have any questions or concerns regarding treatment for the above conditions, or other urologic issues, please do not hesitate to contact me. The office telephone contact is [phone]. Sincerely, Dr Abner Vargas MD, [facility] - [facility]rology Compassionate Specialist Care for the Genitourinary System Coding Level of Care Code Est Pt Level 3 (44968) Diagnoses Epididymal cyst N50.3
== END 2025-05-24 13:23 | disposition home or self-care (01) ==
LOC: HO.HUSH 13:01
PROVIDERS: PCP Internal Medicine; Visit Provider Urology
DX: N50.3 Cyst of epididymis (principal)
CPT/HCPCS: 99024